=== PATIENT | male | born 1985 | race African-American/Black ===

== ENCOUNTER 2021-07-10 15:20 | Inpatient (IN) ==
[2021-07-10] MEDS: SODIUM CHLORIDE 0.9% 1000ML 1,000 ML IV STA ×2 (15:59→16:31)
[2021-07-10] MEDS ORDERED: ACETAMINOPHEN 500 MG TAB PO STA ×2 (16:00→16:59)
[2021-07-10] MEDS ORDERED: SODIUM CHLORIDE 0.9% 1000ML 1,000 ML IV ONE (16:00)
[2021-07-10 16:02] LABS: Basophils # (auto) 0.02 K/uL (0-0.2); Basophils % (auto) 0.2 %; Eosinophils # (auto) 0.26 K/uL (0-0.5); Eosinophils % (auto) 2.3 %; Hematocrit (blood only) 46.2 % (42-52); Immature Granulocytes # (auto) 0.04 K/uL (0.00-0.02); Immature Granulocytes % (auto) 0.3 %; Lymphocytes % (auto) 13.1 %; Mean Corpuscular Hemoglobin 30.7 pg (25-34); Mean Corpuscular Hgb Conc 34.6 g/dL (32-36); Mean Corpuscular Volume 88.7 fL (80-100); Mean Platelet Volume 8.9 fL (7.4-10.4); Monocytes # (auto) 1.32 K/uL (0.11-0.59); Monocytes % (auto) 11.5 %; Neutrophils # (auto) 8.32 K/uL (1.4-6.5); Neutrophils % (auto) 72.6 %; Platelet Count 247 K/uL (130-400); RDW Coefficient of Variation 13.6 % (11.5-14.5); RDW Standard Deviation 44.2 fL (36.4-46.3); Red Blood Count 5.21 M/uL (4.7-6.1); White Blood Count 11.46 K/uL (4.8-10.8)
--- NOTE | 2021-07-10 16:09 | XRay Report ---
XR chest 1V portable HISTORY: Dyspnea COMPARISON: None. FINDINGS: No pneumothorax. No pleural effusions. The cardiac silhouette is borderline enlarged. This may be accentuated by the low lung volumes. There is diffuse interstitial thickening with hazy bibasi lar densities. IMPRESSION: Hazy bibasilar densities which could represent atelectasis from the low lung volumes or a viral pneum onia. ACT 112: Negative or not required by law. Electronically signed by: Vishal Hylton M.D. 07/10/2021 4:07 PM
[2021-07-10 16:11] LABS: iSTAT Creatinine 0.7 mg/dl (0.6-1.3); iSTAT Ionized Calcium 1.19 mmol/l (1.12-1.32); iSTAT Potassium 3.8 mmol/L (3.3-5.0)
[2021-07-10 16:12] LABS: Partial Thromboplastin Ratio 1.1; Partial Thromboplastin Time 29.6 Seconds (21.0-31.0); Prothrombin Time 10.4 Seconds (9.0-12.0)
[2021-07-10] MEDS ORDERED: OPTIRAY 320 125ml IV ONE (16:18)
[2021-07-10 16:23] LABS: Troponin I < 0.03 ng/ml (0-0.04)
[2021-07-10 16:24] LABS: Alanine Aminotransferase 25 U/L (7-52); Albumin Globulin Ratio 1.4 (0.9-2); Albumin Level 4.5 gm/dl (3.4-5.0); Alkaline Phosphatase 94 U/L (34-104); Anion Gap 10 (3-11); Aspartate Aminotransferase 23 U/L (13-39); BUN Creatinine Ratio 7.7 (10-20); Bilirubin,Total 1.2 mg/dl (0.2-1.0); Blood Urea Nitrogen 6 mg/dl (6-23); Calcium 9.7 mg/dl (8.5-10.1); Carbon Dioxide 24 mmol/L (21-32); Chloride 104 mmol/L (98-107); Creatinine Clr Calc Pharmacy 178.8 ml/min; Est GFR (African American) 135.5 ml/min; Est GFR (Non-African American) 116.9 ml/min; Globulin 3.2 gm/dl (2.5-4.0); Glucose 99 mg/dl (70-99(Fasting)); Magnesium 1.6 mg/dl (1.7-2.4); Potassium 3.8 mmol/L (3.5-5.1); Sodium 138 mmol/L (136-145); Total Protein 7.7 gm/dl (6.0-8.3)
--- NOTE | 2021-07-10 16:40 | CT Scan Report ---
CHEST CTA for PULMONARY ARTERIES CT DOSE: 3548.04 mGy.cm HISTORY: Dyspnea, hemoptysis TECHNIQUE: Multiaxial CT images of the chest were performed following the intravenous administration of contrast to evaluate the pulmonary arteries. Maximal intensity projection images were also obtaine d. A dose lowering technique was utilized adhering to the principles of ALARA. COMPARISON STUDY: None. FINDINGS: Trace left pleural effusion. No pericardial effusion. No significant right-sided heart stra in at this time. There is respiratory motion artifact. Normal caliber thoracic aorta with no evidence for dissection. Please refer to same day abdomen and pelvis CT for further evaluation of the abdomin al structures. Normal esophagus. The thyroid gland enhances normally. No mediastinal or hilar lymphad enopathy. The majority the bilateral lower lobe segmental and subsegmental pulmonary arteries are ess entially nondiagnostic due to the respiratory motion. However, there appear to be multiple filling de fects within the majority of the bilateral segmental/subsegmental pulmonary arteries of the lungs con sistent with pulmonary emboli. The main pulmonary arteries are patent. No fractures within the visual ized osseous structures. No pneumothorax. The central pulmonary arteries are patent. A few peripheral airspace opacities within the lung bases, left greater than right, are nonspecific but favor pulmona ry infarcts. Atelectasis or pneumonia could also have a similar appearance but are considered less li brittany. IMPRESSION: 1. Extensive bilateral segmental/subsegmental pulmonary emboli. No evidence for right-sided heart str ain at this time. 2. Trace left pleural effusion. 3. A few small nonspecific peripheral bibasilar airspace opacities, left greater than right. These fa vor pulmonary infarcts. ACT 112: Negative or not required by law. Electronically signed by: Vishal Hylton M.D. 07/10/2021 4:39 PM
--- NOTE | 2021-07-10 16:45 | CT Scan Report ---
ABDOMEN AND PELVIS CT WITH IV CONTRAST CT DOSE: HISTORY: left sided chest and abd pain, hemoptysis TECHNIQUE: Multiaxial CT images of the abdomen and pelvis were performed following the use of intrave nous contrast. A dose lowering technique was utilized adhering to the principles of ALARA. COMPARISON STUDY: None. FINDINGS: The bibasilar pulmonary emboli, trace left pleural effusion, and bibasilar pulmonary infarc ts are better appreciated on the same day chest CTA. No pneumoperitoneum. No pneumatosis. No fracture s within the visualized osseous structures. Evidence for prior left inguinal hernia repair. Tiny fat- containing umbilical hernia. The liver, spleen, adrenal glands, pancreas, gallbladder, and kidneys ar e unremarkable. No hydronephrosis. No retroperitoneal lymphadenopathy. Normal caliber abdominal aorta . The bladder is unremarkable. No pelvic free fluid or pelvic lymphadenopathy. No bowel wall thickeni ng or obstruction. Normal appendix. IMPRESSION: 1. The bibasilar pulmonary emboli, pulmonary infarcts, and trace left pleural effusion better appreci ated on the same day chest CTA. 2. No bowel wall thickening or obstruction. 3. Normal appendix. 4. No hydronephrosis. ACT 112: Negative or not required by law. Electronically signed by: Vishal Hylton M.D. 07/10/2021 4:44 PM
[2021-07-10] MEDS ORDERED: Heparin IV Adult Wt-Based Standard WITH Bolus Protocol STA (16:56)
[2021-07-10] MEDS ORDERED: MoRPHine SULFATE 4 MG/ML 1 ML CARP\\VIAL IV PRN (16:59)
[2021-07-10] MEDS ORDERED: HEPARIN SOD (PORCINE) 1000 UNIT/ML IV ONE ×3 (17:12→17:15)
--- NOTE | 2021-07-10 17:16 | Emergency Department Note ---
Impression & Plan Bilateral pulmonary embolism, Pulmonary infarct, Left-sided chest pain, Cough with hemoptysis, Abdominal pain, acute, left upper quadrant ED Provider Note INFORMANT: Patient ED PROVIDER(S): Bulmaro Meléndez MD CHIEF COMPLAINT: Chest pain PLAN: Disposition: Admitted Condition: Good Outpatient prescription management: none Referral: None MEDICAL DECISION MAKING: Patient presented to emergency room and because of left-sided chest pain. He had hemoptysis. The patient was diaphoretic. His i-STAT was unremarkable. Chest x-ray shows hazy changes but no definitive infiltrate. The patient underwent CT imaging of the chest as well as the abdomen and pelvis. His CBC showed a slight leukocytosis. Chemistry panel and troponin unremarkable. CT imaging of the abdomen pelvis was negative for intra-abdominal pathology. CT imaging of the chest revealed bilateral pulmonary emboli and pulmonary infarct. Patient was reassessed. IV morphine was ordered. Patient was hemodynamically stable. Hypercoagulability work-up ordered. Heparin was ordered. Tylenol ordered. The patient's case was discussed with the [facility] service. He will be admitted by Dr. Kapoor for further management. Triage Nursing notes reviewed and agree them. Vital Signs: reviewed and remarkable for borderline fever Differential diagnosis: PE, intra-abdominal process, reactive airway disease, pneumonia, pneumothorax, COPD, CHF, infections, cardiac ischemia, musculoskeletal, gastrointestinal, as well as other pathologies. Diagnostics interpreted by me: ECG: Twelve-lead ECG reveals normal sinus rhythm at 80 bpm. Incomplete right bundle branch block. Left axis deviation. No ST elevation or depression. No pericarditis. Cardiac Monitoring: Cardiac monitoring ordered by me: The patient was placed on continuous cardiac monitoring and observed. It revealed a normal sinus rhythm at 85 beats per minute without ectopy or evidence of dysrhythmia. Imaging studies: Chest x-ray and CT scans as noted above. I refer you to the EMR for further details. HPI: The patient is a 35year old male prisoner who presents to the Emergency Room with complaints of chest pain that is left-sided and sharp. Pleuritic. This started 3 days and is worsening. The patient also notes the following associated symptoms, mild shortness of breath, hemoptysis with coughing, left upper quadrant abdominal pain, diaphoresis. The patient has been prescribed no new medication for relieving factors. Current pain is rated as nine/10. Pt denies LOC, headache, fevers, chills, visual changes, neck pain, nausea, vom iting, abdominal pain, back pain, melena, hematochezia, urinary symptoms, numbness, weakness, lymphadenopathy, rash, or other complaints. ROS: See above HPI for pertinent positives & negatives. A total of 10 systems reviewed and were otherwise negative. PAST MEDICAL HISTORY:See Below , arthritis PAST SURGICAL HISTORY:See Below, FAMILY HISTORY:See Below SOCIAL HISTORY:See Below, incarcerated HOME MEDICATIONS:See Below ALLERGIES:See Below VITALS:See Below PHYSICAL EXAMINATION: GENERAL: Awake, alert, uncomfortable-appearing, in no distress HENT: Normocephalic, atraumatic. Oropharynx unremarkable. EYES: Normal conjunctiva. Sclera non-icteric. NECK: Inspection normal. Non-tender. Supple. No nuchal rigidity. FROM. No masses. RESPIRATORY: Clear to auscultation. No wheezes. No rales. Normal respiratory effort. CARDIAC: Normal rate. Normal rhythm. No murmurs. No rubs. Extremities warm and well perfused. Pulses equal. No JVD. GI: Soft, non-distended. No tenderness to palpation. No rebound or guarding. No masses. RECTAL: Deferred. MUSCULOSKELETAL: Atraumatic. Chest examination reveals no tenderness. The back is symmetrical on inspection without obvious abnormality. There is no CVA tenderness to palpation. No joint edema. LOWER EXTREMITIES: Calves are equal size bilaterally and non-tender. No edema. No discoloration. NEURO: Normal sensorium. No sensory or motor deficits noted. SKIN: Diaphoretic, no rash or jaundice noted. CRITICAL CARE: I have personally spent greater than 40minutes of critical care time in the direct management of this patient. This includes bedside care, interpretation of diagnostic studies, and testing, discussion with consultants, patient, and group home staff, and other required patient management activities. These minutes are in excess of all separately billable procedures. Bulmaro Meléndez MD Past Med/Surg History Social History Smoking Status: Former smoker Feels Safe at Home: Yes Results & Data (ED) Vital Signs Vital Signs - 24 hr 07/10/21 15:27 07/10/21 16:07 Temperature 37.6 C H Temperature Source Oral Pulse Rate 88 85 Pulse Rate [Apical] 85 Pulse Rhythm Regular Pulse Strength Normal Respiratory Rate 22 24 Respiratory Effort / Characteristics Non-Labored Spontaneous Non-Labored Spontaneous Respiratory Depth Normal Normal Respiratory Pattern Regular Regular Blood Pressure 164/105 H Blood Pressure [Right Arm] 164/90 H Blood Pressure Mean 124 Blood Pressure Mean [Right Arm] 114 Blood Pressure Position Sitting Pulse Oximetry 95 98 Oxygen Delivery Method Room Air Room Air Sepsis Recent Fever Within 48 Hours No Sepsis New/Unexplained Change in Mental Status No Sepsis Action Taken by Nursing No Action Required Laboratory Data Result diagrams: 07/10/21 15:50 07/10/21 15:50 Lab Results 07/10/21 07/10/21 07/10/21 Range/Units 15:50 15:50 15:50 WBC 11.46 H (4.8-10.8) K/uL RBC 5.21 (4.7-6.1) M/uL Hgb 16.0 (14.0-18.0) g/dL POC Hgb (14.0-18.0) g/dl Hct 46.2 (42-52) % POC Hct (42-52) % MCV 88.7 (80-100) fL MCH 30.7 (25-34) pg MCHC 34.6 (32-36) g/dL RDW Std Deviation 44.2 (36.4-46.3) fL RDW Coeff of Ty 13.6 (11.5-14.5) % Plt Count 247 (130-400) K/uL MPV 8.9 (7.4-10.4) fL Immature Gran % (Auto) 0.3 % Neut % (Auto) 72.6 % Lymph % (Auto) 13.1 % [place] % (Auto) 11.5 % Eos % (Auto) 2.3 % Baso % (Auto) 0.2 % Neut # (Auto) 8.32 H (1.4-6.5) K/uL Lymph # (Auto) 1.50 (1.2-3.4) K/uL [place] # (Auto) 1.32 H (0.11-0.59) K/uL Eos # (Auto) 0.26 (0-0.5) K/uL Baso # (Auto) 0.02 (0-0.2) K/uL Immature Gran # (Auto) 0.04 H (0.00-0.02) K/uL PT 10.4 (9.0-12.0) Seconds INR 1.0 (0.9-1.1) APTT 29.6 (21.0-31.0) Seconds PTT Ratio 1.1 POC Sodium (135-144) mmol/L Sodium 138 (136-145) mmol/L POC Potassium (3.3-5.0) mmol/L Potassium 3.8 (3.5-5.1) mmol/L POC Chloride (101-112) mmol/L Chloride 104 (98-107) mmol/L Carbon Dioxide 24 (21-32) mmol/L POC Total CO2 (24-31) mmol/L Anion Gap 10 (3-11) POC Anion Gap (16-25) mmol/L POC BUN (7-18) mg/dl BUN 6 (6-23) mg/dl Creatinine 0.78 (0.6-1.4) mg/dl POC Creatinine (0.6-1.3) mg/dl Est Cr Clr Drug Dosing 178.8 ml/min Est GFR ( Amer) 135.5 ml/min Est GFR (Non-Af Amer) 116.9 ml/min BUN/Creatinine Ratio 7.7 L (10-20) Glucose 99 (70-99(Fasting)) mg/dl POC Glucose (other) (70-99) mg/dl Calcium 9.7 (8.5-10.1) mg/dl POC Ioniz Calcium Claude (1.12-1.32) mmol/l Magnesium 1.6 L (1.7-2.4) mg/dl Total Bilirubin 1.2 H (0.2-1.0) mg/dl AST 23 (13-39) U/L ALT 25 (7-52) U/L Alkaline Phosphatase 94 (34-104) U/L Troponin I < 0.03 (0-0.04) ng/ml Total Protein 7.7 (6.0-8.3) gm/dl Albumin 4.5 (3.4-5.0) gm/dl Globulin 3.2 (2.5-4.0) gm/dl Albumin/Globulin Ratio 1.4 (0.9-2) SARS-CoV-2, RNA, NAAT (NEGATIVE) 07/10/21 07/10/21 Range/Units 15:58 16:45 WBC (4.8-10.8) K/uL RBC (4.7-6.1) M/uL Hgb (14.0-18.0) g/dL POC Hgb 16.0 (14.0-18.0) g/dl Hct (42-52) % POC Hct 47 (42-52) % MCV (80-100) fL MCH (25-34) pg MCHC (32-36) g/dL RDW Std Deviation (36.4-46.3) fL RDW Coeff of Ty (11.5-14.5) % Plt Count (130-400) K/uL MPV (7.4-10.4) fL Immature Gran % (Auto) % Neut % (Auto) % Lymph % (Auto) % [place] % (Auto) % Eos % (Auto) % Baso % (Auto) % Neut # (Auto) (1.4-6.5) K/uL Lymph # (Auto) (1.2-3.4) K/uL [place] # (Auto) (0.11-0.59) K/uL Eos # (Auto) (0-0.5) K/uL Baso # (Auto) (0-0.2) K/uL Immature Gran # (Auto) (0.00-0.02) K/uL PT (9.0-12.0) Seconds INR (0.9-1.1) APTT (21.0-31.0) Seconds PTT Ratio POC Sodium 140 (135-144) mmol/L Sodium (136-145) mmol/L POC Potassium 3.8 (3.3-5.0) mmol/L Potassium (3.5-5.1) mmol/L POC Chloride 103 (101-112) mmol/L Chloride (98-107) mmol/L Carbon Dioxide (21-32) mmol/L POC Total CO2 23 L (24-31) mmol/L Anion Gap (3-11) POC Anion Gap 19.0 (16-25) mmol/L POC BUN 4 L (7-18) mg/dl BUN (6-23) mg/dl Creatinine (0.6-1.4) mg/dl POC Creatinine 0.7 (0.6-1.3) mg/dl Est Cr Clr Drug Dosing ml/min Est GFR ( Amer) ml/min Est GFR (Non-Af Amer) ml/min BUN/Creatinine Ratio (10-20) Glucose (70-99(Fasting)) mg/dl POC Glucose (other) 104 H (70-99) mg/dl Calcium (8.5-10.1) mg/dl POC Ioniz Calcium Claude 1.19 (1.12-1.32) mmol/l Magnesium (1.7-2.4) mg/dl Total Bilirubin (0.2-1.0) mg/dl AST (13-39) U/L ALT (7-52) U/L Alkaline Phosphatase (34-104) U/L Troponin I (0-0.04) ng/ml Total Protein (6.0-8.3) gm/dl Albumin (3.4-5.0) gm/dl Globulin (2.5-4.0) gm/dl Albumin/Globulin Ratio (0.9-2) SARS-CoV-2, RNA, NAAT NEGATIVE (NEGATIVE) Administered Medications Sodium Chloride (Nss 1000ml) 1,000 mls @ 125 mls/hr IV .Q8H STA Stop: 07/10/21 23:34 Last Admin: 07/10/21 16:31 Dose: Not Given Documented by: [id number] Discontinued Medications Acetaminophen (Acetaminophen 500 Mg Tab) 1,000 mg PO NOW STA Stop: 07/10/21 16:01 Last Admin: 07/10/21 16:36 Dose: 1,000 mg Documented by: [id number] Sodium Chloride (Nss 1000ml) 1,000 mls @ 999 mls/hr IV .Q1H1M ONE Stop: 07/10/21 17:00 Last Admin: 07/10/21 16:06 Dose: 999 mls/hr Documented by: [id number] Ioversol (Optiray 320 125ml) 119 ml IV ONCE ONE Stop: 07/10/21 16:19 Last Admin: 07/10/21 16:21 Dose: 119 ml Documented by: [id number] Imaging Data Radiologist's Impression: Chest CTA 07/10/21 15:35 CHEST CTA for PULMONARY ARTERIES CT DOSE: 3548.04 mGy.cm HISTORY: Dyspnea, hemoptysis TECHNIQUE: Multiaxial CT images of the chest were performed following the intravenous administration of contrast to evaluate the pulmonary arteries. Max imal intensity projection images were also obtained. A dose lowering technique was utilized adhering to the principles of ALARA. COMPARISON STUDY: None. FINDINGS: Trace left pleural effusion. No pericardial effusion. No significant right-sided heart strain at this time. There is respiratory motion artifact. Normal caliber thoracic aorta with no evidence for dissection. Please refer to same day abdomen and pelvis CT for further evaluation of the abdominal structures. Normal esophagus. The thyroid gland enhances normally. No mediastinal or hilar lymphadenopathy. The majority the bilateral lower lobe segmental and subsegmental pulmonary arteries are essentially nondiagnostic due to the respiratory motion. However, there appear to be multiple filling defects within the majority of the bilateral segmental/subsegmental pulmonary arteries of the lungs consistent with pulmonary emboli. The main pulmonary arteries are patent. No fractures within the visualized osseous structures. No pneumothorax. The central pulmonary arteries are patent. A few peripheral airspace opacities within the lung bases, left greater than right, are nonspecific but favor pulmonary infarcts. Atelectasis or pneumonia could also have a similar appearance but are considered less likely. IMPRESSION: 1. Extensive bilateral segmental/subsegmental pulmonary emboli. No evidence for right-sided heart strain at this time. 2. Trace left pleural effusion. 3. A few small nonspecific peripheral bibasilar airspace opacities, left greater than right. These favor pulmonary infarcts. ACT 112: Negative or not required by law. Electronically signed by: Vishal Hylton M.D. 07/10/2021 4:39 PM Chest X-Ray 07/10/21 15:35 XR chest 1V portable HISTORY: Dyspnea COMPARISON: None. FINDINGS: No pneumothorax. No pleural effusions. The cardiac silhouette is borde rline enlarged. This may be accentuated by the low lung volumes. There is diffuse interstitial thickening with hazy bibasilar densities. IMPRESSION: Hazy bibasilar densities which could represent atelectasis from the low lung volumes or a viral pneumonia. ACT 112: Negative or not required by law. Electronically signed by: Vishal Hylton M.D. 07/10/2021 4:07 PM Abdomen/Pelvis CT 07/10/21 16:[address] WITH IV CONTRAST CT DOSE: HISTORY: left sided chest and abd pain, hemoptysis TECHNIQUE: Multiaxial CT images of the abdomen and pelvis were performed following the use of intravenous contrast. A dose lowering technique was utilized adhering to the principles of ALARA. COMPARISON STUDY: None. FINDINGS: The bibasilar pulmonary emboli, trace left pleural effusion, and bibasilar pulmonary infarcts are better appreciated on the same day chest CTA. No pneumoperitoneum. No pneumatosis. No fractures within the visualized osseous structures. Evidence for prior left inguinal hernia repair. Tiny fat-containing umbilical hernia. The liver, spleen, adrenal glands, pancreas, gallbladder, and kidneys are unremarkable. No hydronephrosis. No retroperitoneal lymphadenopathy. Normal caliber abdominal aorta. The bladder is unremarkable. No pelvic free fluid or pelvic lymphadenopathy. No bowel wall thickening or obstruction. Normal appendix. IMPRESSION: 1. The bibasilar pulmonary emboli, pulmonary infarcts, and trace left pleural effusion better appreciated on the same day chest CTA. 2. No bowel wall thickening or obstruction. 3. Normal appendix. 4. No hydronephrosis. ACT 112: Negative or not required by law. Electronically signed by: Vishal Hylton M.D. 07/10/2021 4:44 PM Discharge Plan Visit Data Chief Complaint: Respiratory Problems Stated Complaint: POSSIBLE PULMANARY EMBOLISM ED Provider: Bulmaro Meléndez Discharge Problem: Bilateral pulmonary embolism, Pulmonary infarct, Left-sided chest pain, Cough with hemoptysis, Abdominal pain, acute, left upper quadrant Forms Stand Alone Forms: My [facility] Referrals Referrals: Erica TORRES [Primary Care Provider] -
[2021-07-10] MEDS: HEPARIN SODIUM/DEXTROSE 25,000 UNITS/500 ML BAG IV SCH (17:46)
[2021-07-10] MEDS ORDERED: MAGNESIUM SULFATE 1GM / D5W BAG IV ONE (17:46)
[2021-07-10] MEDS ORDERED: ALUMINUM/MAGNESIUM SUSP 30 ML UDC PO PRN (18:01)
[2021-07-10] MEDS ORDERED: POLYETHYLENE (MIRALAX) 17 GM PACK PO PRN (18:01)
[2021-07-10] MEDS ORDERED: MAGNESIUM HYDROXIDE SUSP 30 ML UDC PO PRN (18:01)
[2021-07-10] MEDS ORDERED: ONDANSETRON INJ 2 MG/ML 2 ML VIAL IV PRN (18:01)
[2021-07-10] MEDS ORDERED: ACETAMINOPHEN 325 MG TAB PO PRN (18:01)
--- NOTE | 2021-07-10 18:03 | History & Physical Report ---
Date of Service July 10, 2021 Assessment & Plan (1) Bilateral pulmonary embolism: (2) Pulmonary infarct: (3) Left-sided chest pain: Plan: Bilateral pulmonary embolism Pulmonary infarct Left Sided chest pain Hemoptysis Admit to PCU Continue IV Heparin bolus/gtt obtain echo to r/o R heart strain consult pulmonology pain control with scheduled APAP, prn IV morphine, K pad monitor labs hypercoagulable w/u pending Hypomagnesemia Replace Repeat in a.m. DVT prophylaxis: IV heparin Dispo: PCU Full code PCP: [facility] Patient was seen and examined in collaboration with Dr. Kapoor, please see addendum The chart was completed utilizing [employer] Speech voice recognition software. Grammatical errors, random word insertions, pronoun errors, and incomplete sentences are an occasional consequence of this system due to software limitations, ambient noise, and hardware issues. Any formal questions or concerns about the content, text, or information contained within the body of this dictation should be directly addressed to the provider for clarification. History of Present Illness Chief Complaint: Left-sided chest pain, shortness of breath with hemoptysis x3 days. Primary Care Provider: MELISSA Maldonado This is a 35-year-old male who is otherwise healthy and resides at [facility] who presents to ED due to left-sided chest pain, shortness of breath and hemoptysis x3 days. He states 3 days ago he awoke from sleeping with hemo ptysis, left-sided chest pain and shortness of breath with exertion. Over 3 days his symptoms worsened and due to worsening left-sided chest pain he opted to seek ED for further evaluation. Left-sided chest pain is constant, worse with inspiration, described as a sharp pain, rated a 7 out of 10, never experienced before, improved with shallow breathing, made worse with deep breathing and movement and is associated with shortness of breath. He denies any prior history of pulmonary embolism. He states his brother in his 30s was diagnosed with pulmonary embolism and his mother has been fighting clots for the past 20 years. He is unsure if they have clotting disorder. Up until 3 days ago he had been in his normal state of health. He is very active and works out at the longterm frequently. He denies any recent travel, sedentary state or surgery. He denies any known medical problems including active cancer, HTN, HLD or diabetes. He denies any recent fever, chills, sweats, lightheadedness, dizziness, shortness of breath at rest, nausea, vomiting, abdominal pain, changes bowel or urinary habits. [facility] guards are present at bedside. In ED patient remained hemodynamically stable although mildly hypertensive and temperature elevated at 37.6. His CBC and CMP were generally unremarkable except for mild leukocytosis at 11.46, glucose 104 and magnesium 1.6. CTA of chest revealed extensive bilateral segmental/subsegmental pulmonary emboli with no evidence of right heart strain. Trace left pleural effusion. A few small nonspecific peripheral bibasilar airspace opacities, left greater than right favoring pulmonary infarct. In ED he was initiated on IV heparin bolus and drip after hypercoagulable panel was obtained. He also received IV morphine for pain control. Allergies Allergy/AdvReac Type Severity Reaction Status Date / Time No Known Allergies Allergy Unverified 07/10/21 17:46 Home Medications Medication Instructions Recorded Confirmed Type diclofenac sodium 25 mg 25 mg PO TID PRN 07/10/21 07/10/21 History tablet,delayed release famotidine 10 mg tablet 10 mg PO HS 07/10/21 07/10/21 History omeprazole 40 mg capsule,delayed 40 mg PO DAILY 07/10/21 07/10/21 History release topiramate 25 mg tablet 25 mg PO DAILY 07/10/21 07/10/21 History Past Med/Surg History Medical History (Updated 07/10/21 @ 19:19 by Gisselle Fox PA-C) Antisocial personality disorder No significant past medical history Surgical History History of arthroscopic knee surgery History of hernia surgery Family History Brother Pulmonary embolism Mother Pulmonary embolism Other Cancer Diabetes Social History Smoking Status: Former smoker Hx Alcohol Use: No Hx Substance Use: No Preferred Language: Moroccan Communication Ability: Effective Cutter Helper Required: No Beliefs That Will Affect Care: None marital status: Single Current Living Situation: Other Current Living Situation Comment: MEILSSA Maldonado Feels Safe at Home: Yes Safety Concerns: Feels Safe At This Time Assistive Devices: None Review of Systems Review of Systems: All systems reviewed & are unremarkable except as noted in HPI & below Physical Exam Physical Exam: Constitutional: WD/WN, vitals as above, NAD, sitting up in bed, pleasant, conversing easily Head: Normocephalic, Atraumatic Eyes: PERRL, conjunctivae normal, anicteric sclerae ENMT: external ear and nose normal, oropharynx normal Neck: trachea midline, no thyromegaly normal visual inspection Respiratory: normal respiratory effort, lungs clear to auscultation, no wheeze, rales, rhonchi. Normal insp/exp effort, no accessory muscle use Cardiovascular: RRR, no murmur, no edema Vessels: no JVD or carotid bruit Chest: Pain to palpation left side and lateral side of chest, pain with inspiration, normal inspection of chest Abdomen: normal bowel sounds, soft, nontender, no hepatosplenomegaly Musculoskeletal: no cyanosis or clubbing, extremities motor strength 5/5 Skin: Multiple tattoos on anterior posterior thorax and extremities, no rashes, warm and dry normal turgor Neurologic: PERRL, EOMI, accommodation nl, no face palsy, no dysarthria CN's II-XI intact bilaterally and moves all extremities Psychiatric: A+Ox3, euthymic affect Lymphatic: no cervical or axillary lymphadenopathy : deferred Results & Data Results & Data ([facility]) Vital Signs (Past 12 Hours) Vital Signs Temp Pulse Pulse Resp BP BP Pulse Ox 07/10/21 16:07 85 85 24 164/90 H 98 07/10/21 15:27 37.6 C H 88 22 164/105 H 95 Diagnostic Findings Chest CTA 07/10/21 15:35 CHEST CTA for PULMONARY ARTERIES CT DOSE: 3548.04 mGy.cm HISTORY: Dyspnea, hemoptysis TECHNIQUE: Multiaxial CT images of the chest were performed following the intravenous administration of contrast to evaluate the pulmonary arteries. Maximal intensity projection images were also obtained. A dose lowering technique was utilized adhering to the principles of ALARA. COMPARISON STUDY: None. FINDINGS: Trace left pleural effusion. No pericardial effusion. No significant right-sided heart strain at this time. There is respiratory motion artifact. Normal caliber thoracic aorta with no evidence for dissection. Please refer to same day abdomen and pelvis CT for further evaluation of the abdominal structures. Normal esophagus. The thyroid gland enhances normally. No mediastinal or hilar lymphadenopathy. The majority the bilateral lower lobe segmental and subsegmental pulmonary arteries are essentially nondiagnostic due to the respiratory motion. However, there appear to be multiple filling defects within the majority of the bilateral segmental/subsegmental pulmonary arteries of the lungs consistent with pulmonary emboli. The main pulmonary arteries are patent. No fractures within the visualized osseous structures. No pneumothorax. The central pulmonary arteries are patent. A few peripheral airspace opacities within the lung bases, left greater than right, are nonspecific but favor pulmonary infarcts. Atelectasis or pneumonia could also have a similar appearance but are considered less likely. IMPRESSION: 1. Extensive bilateral segmental/subsegmental pulmonary emboli. No evidence for right-sided heart strain at this time. 2. Trace left pleural effusion. 3. A few small nonspecific peripheral bibasilar airspace opacities, left greater than right. These favor pulmonary infarcts. ACT 112: Negative or not required by law. Electronically signed by: Vishal Hylton M.D. 07/10/2021 4:39 PM Chest X-Ray 07/10/21 15:35 XR chest 1V portable HISTORY: Dyspnea COMPARISON: None. FINDINGS: No pneumothorax. No pleural effusions. The cardiac silhouette is borderline enlarged. This may be accentuated by the low lung volumes. There is diffuse interstitial thickening with hazy bibasilar densities. IMPRESSION: Hazy bibasilar densities which could represent atelectasis from the low lung volumes or a viral pneumonia. ACT 112: Negative or not required by law. Electronically signed by: Vishal Hylton M.D. 07/10/2021 4:07 PM Abdomen/Pelvis CT 07/10/21 16:[address] WITH IV CONTRAST CT DOSE: HISTORY: left sided chest and abd pain, hemoptysis TECHNIQUE: Multiaxial CT images of the abdomen and pelvis were performed following the use of intravenous contrast. A dose lowering technique was utilized adhering to the principles of ALARA. COMPARISON STUDY: None. FINDINGS: The bibasilar pulmonary emboli, trace left pleural effusion, and bibasilar pulmonary infarcts are better appreciated on the same day chest CTA. No pneumoperitoneum. No pneumatosis. No fractures within the visualized osseous structures. Evidence for prior left inguinal hernia repair. Tiny fat-containing umbilical hernia. The liver, spleen, adrenal glands, pancreas, gallbladder, and kidneys are unremarkable. No hydronephrosis. No retroperitoneal lymphadenopathy. Normal caliber abdominal aorta. The bladder is unremarkable. No pelvic free fluid or pelvic lymphadenopathy. No bowel wall thickening or obstruction. Normal appendix. IMPRESSION: 1. The bibasilar pulmonary emboli, pulmonary infarcts, and trace left pleural effusion better appreciated on the same day chest CTA. 2. No bowel wall thickening or obstruction. 3. Normal appendix. 4. No hydronephrosis. ACT 112: Negative or not required by law. Electronically signed by: Vishal Hylton M.D. 07/10/2021 4:44 PM Medications Administered Medication List Sodium Chloride (Nss 1000ml) 1,000 mls @ 125 mls/hr IV .Q8H STA Stop: 07/10/21 23:34 Last Admin: 07/10/21 16:31 Dose: Not Given Documented by: [id number] Heparin Sodium/Dextrose (Heparin Sodium/Dextrose) 25,000 units in 500 mls @ 34 mls/hr IV .[id number] [facility]; Protocol Stop: 08/09/21 17:14 Last Admin: 07/10/21 17:46 Dose: 1,700 units/hr, 34 mls/hr Documented by: [id number] Cosigned by: [id number] Discontinued Medications Acetaminophen (Acetaminophen 500 Mg Tab) 1,000 mg PO NOW STA Stop: 07/10/21 16:01 Last Admin: 07/10/21 16:36 Dose: 1,000 mg Documented by: [id number] Acetaminophen (Acetaminophen 500 Mg Tab) 1,000 mg PO NOW STA Stop: 07/10/21 17:00 Last Admin: 07/10/21 17:45 Dose: 1,000 mg Documented by: [id number] Heparin Sodium (Porcine) (Heparin Sod (Porcine) 1000 Unit/Ml) 5,000 units IV NOW ONE Stop: 07/10/21 17:16 Last Admin: 07/10/21 17:45 Dose: 5,000 units Documented by: [id number] Cosigned by: [id number] Sodium Chloride (Nss 1000ml) 1,000 mls @ 999 mls/hr IV .Q1H1M ONE Stop: 07/10/21 17:00 Last Admin: 07/10/21 16:06 Dose: 999 mls/hr Documented by: [id number] Ioversol (Optiray 320 125ml) 119 ml IV ONCE ONE Stop: 07/10/21 16:19 Last Admin: 07/10/21 16:21 Dose: 119 ml Documented by: [id number] ECG Rate (beats per minute): 88 Rhythm: normal sinus Findings: + RBBB COVID-19 Results Results COVID-19 Adm Lab Results: RBC 5.21 M/uL (4.7-6.1) 07/10/21 WBC 11.46 K/uL (4.8-10.8) H 07/10/21 Hgb 16.0 g/dL (14.0-18.0) 07/10/21 Hct 46.2 % (42-52) 07/10/21 Plt Count 247 K/uL (130-400) 07/10/21 Neutrophils (%) (Auto) 72.6 % 07/10/21 Lymphocytes (%) (Auto) 13.1 % 07/10/21 Monocytes # (Auto) 1.32 K/uL (0.11-0.59) H 07/10/21 Eosinophils # (Auto) 0.26 K/uL (0-0.5) 07/10/21 Immature Granulocyte % (Auto) 0.3 % 07/10/21 Neutrophils # (Auto) 8.32 K/uL (1.4-6.5) H 07/10/21 Lymphocytes # (Auto) 1.50 K/uL (1.2-3.4) 07/10/21 Monocytes # (Auto) 1.32 K/uL (0.11-0.59) H 07/10/21 Eosinophils # (Auto) 0.26 K/uL (0-0.5) 07/10/21 Basophils # (Auto) 0.02 K/uL (0-0.2) 07/10/21 Immature Granulocyte # (Auto) 0.04 K/uL (0.00-0.02) H 07/10/21 Na 138 mmol/L (136-145) 07/10/21 K 3.8 mmol/L (3.5-5.1) 07/10/21 Cl 104 mmol/L (98-107) 07/10/21 CO2 24 mmol/L (21-32) 07/10/21 Anion Gap 10 (3-11) 07/10/21 BUN 6 mg/dl (6-23) 07/10/21 Creatinine 0.78 mg/dl (0.6-1.4) 07/10/21 BUN/Creatinine Ratio 7.7 (10-20) L 07/10/21 Glucose Level 99 mg/dl (70-99(Fasting)) 07/10/21 Ca 9.7 mg/dl (8.5-10.1) 07/10/21 Total Bilirubin 1.2 mg/dl (0.2-1.0) H 07/10/21 AST/SGOT 23 U/L (13-39) 07/10/21 ALT/SGPT 25 U/L (7-52) 07/10/21 Alkaline Phosphatase 94 U/L (34-104) 07/10/21 Total Protein 7.7 gm/dl (6.0-8.3) 07/10/21 Albumin 4.5 gm/dl (3.4-5.0) 07/10/21 Globulin 3.2 gm/dl (2.5-4.0) 07/10/21 Albumin/Globulin Ratio 1.4 (0.9-2) 07/10/21 Troponin I < 0.03 ng/ml (0-0.04) 07/10/21 PTT 29.6 Seconds (21.0-31.0) 07/10/21 INR 1.0 (0.9-1.1) 07/10/21 SARS-CoV-2, RNA, NAAT NEGATIVE (NEGATIVE) 07/10/21 Chest X-Ray 07/10/21 Code Status & VTE Plan Code Status Full code VTE Prophylaxis Plan VTE Prophylaxis will be ordered: No Supervising Physician Co-Signing Physician Notes I have seen and examined the patient and have discussed the case with the provider above. I agree with the assessment and plan as stated. 35 yo prisoner with acute chest pain worse on the left 2/2 pulmonary infarction and acute PE, unprovoked. Mother and brother with h/o DVT in the past but he doesn't know if they had an underlying disorder. Pain is not controlled with tylenol or morphine and there is an exquisite pain with palpation of the left pectoralis area. No bruising present. Physical reveals a young, muscular man in mild distress 2/2 pain. Mentating clearly and CN 2-12 grossly intact, lungs are clear to auscultation throughout, cardiac exam reveals S1/2 heard with out m/g/r. Labs and imaging as noted above. Agree with heparin at this time which will also offer an anti-inflammatory effect. Cont pain control efforts with APAP and/or narcotic. Add toradol as morphine and APAP not effective. Hypercoag workup is pending. Consult pulmonology for oversight and additional recommendations. DO Antwon
[2021-07-10] MEDS: MAGNESIUM SULFATE / D5W 1 GM/100 ML BAG IV SCH ×2 (18:15→19:15)
[2021-07-10] MEDS ORDERED: MoRPHine SULFATE 2 MG/ML CARP IV STA (19:02)
[2021-07-10] MEDS: FAMOTIDINE 10 MG TABLET PO SCH (21:19)
[2021-07-10] MEDS: ACETAMINOPHEN 500 MG TAB PO SCH (21:19)
[2021-07-11 01:31] LABS: Partial Thromboplastin Ratio 1.7
[2021-07-11 08:25] LABS: Basophils # (auto) 0.02 K/uL (0-0.2); Basophils % (auto) 0.2 %; Eosinophils # (auto) 0.26 K/uL (0-0.5); Eosinophils % (auto) 2.5 %; Hematocrit (blood only) 46.4 % (42-52); Hemoglobin 15.7 g/dL (14.0-18.0); Immature Granulocytes # (auto) 0.02 K/uL (0.00-0.02); Immature Granulocytes % (auto) 0.2 %; Lymphocytes # (auto) 1.51 K/uL (1.2-3.4); Lymphocytes % (auto) 14.4 %; Mean Corpuscular Hemoglobin 30.4 pg (25-34); Mean Corpuscular Hgb Conc 33.8 g/dL (32-36); Mean Corpuscular Volume 89.7 fL (80-100); Mean Platelet Volume 8.8 fL (7.4-10.4); Monocytes % (auto) 11.4 %; Neutrophils % (auto) 71.3 %; Platelet Count 222 K/uL (130-400); RDW Coefficient of Variation 13.6 % (11.5-14.5); RDW Standard Deviation 44.6 fL (36.4-46.3); Red Blood Count 5.17 M/uL (4.7-6.1); White Blood Count 10.51 K/uL (4.8-10.8)
[2021-07-11 08:34] LABS: Partial Thromboplastin Ratio 1.6
[2021-07-11] MEDS: HEPARIN SODIUM/DEXTROSE 25,000 UNITS/500 ML BAG IV SCH (08:35)
[2021-07-11] MEDS: PANTOprazole 40 MG TAB PO SCH (08:36)
[2021-07-11] MEDS: ACETAMINOPHEN 500 MG TAB PO SCH ×4 (08:36→20:36)
[2021-07-11] MEDS: TOPIRAMATE 25 MG TAB PO SCH (08:37)
[2021-07-11] MEDS: MoRPHine SULFATE 4 MG/ML 1 ML CARP\\VIAL IV PRN ×2 (08:37→17:59)
[2021-07-11 08:44] LABS: Albumin Globulin Ratio 1.3 (0.9-2); BUN Creatinine Ratio 9.5 (10-20); Bilirubin,Total 1.1 mg/dl (0.2-1.0); Calcium 9.3 mg/dl (8.5-10.1); Creatinine Clr Calc Pharmacy 188.3 ml/min; Est GFR (African American) 138.5 ml/min; Est GFR (Non-African American) 119.5 ml/min; Globulin 3.2 gm/dl (2.5-4.0); Magnesium 1.9 mg/dl (1.7-2.4); Total Protein 7.2 gm/dl (6.0-8.3)
[2021-07-11] MEDS ORDERED: APIXABAN 5 MG TABLET PO SCH (09:45)
[2021-07-11] MEDS: DICLOFENAC SOD 1% GEL 100 GM TUBE EXT SCH ×3 (10:59→20:43)
--- NOTE | 2021-07-11 12:55 | Pulmonary Consultation ---
Date of Consultation July 11, 2021 Assessment & Plan (1) Bilateral pulmonary embolism: (2) Pulmonary infarct: (3) Cough with hemoptysis: (4) Pleurisy: 35-year-old male presenting with unprovoked pulmonary embolism. Agree with heparin at this time and consider switching to oral anticoagulant in the next 24 to 48 hours if no further signs of hemoptysis. Pulmonary infarct should be self-limiting and will resolve with time. No interventions required at this time. Recommend outpatient hematology follow-up for further work-up of possible hypercoagulable state. Echo results pending. No indication for systemic thrombolysis at this time. Recommend lidocaine patch for chest pain related to pleurisy. Continue with pain control. Recommend incentive spirometry. Thank you for the consult. Pulmonary will sign off. Please call with questions. History of Present Illness Reason for Consultation: Pulmonary embolism and infarct Attending Physician: Daniel Mathews MD History of Present Illness [id number]-year-old male with a history of incarceration at [facility] who presented to the hospital due to shortness of breath and hemoptysis for 3 days. He was identified to have bilateral pulmonary emboli on CT chest. He denies any significant shortness of breath at rest currently. He is currently on room air saturating 97%. Also seen on CT chest were small areas of pulmonary infarct. His hemoglobin has remained stable. He does not have any obvious provoking factors for PE. He does have a history of clotting disorder in his family as his brother was diagnosed with a pulmonary embolism in his 30s and mother has had issues with clotting. He is currently on IV heparin infusion. He endorses left-sided chest pain and pleurisy. He has had small amounts of hemoptysis throughout the day admixed with mucus in his sputum. Allergies Allergy/AdvReac Type Severity Reaction Status Date / Time No Known Allergies Allergy Unverified 07/10/21 17:46 Home Medications Medication Instructions Recorded Confirmed Type diclofenac sodium 25 mg 25 mg PO TID PRN 07/10/21 07/10/21 History tablet,delayed release famotidine 10 mg tablet 10 mg PO HS 07/10/21 07/10/21 History omeprazole 40 mg capsule,delayed 40 mg PO DAILY 07/10/21 07/10/21 History release topiramate 25 mg tablet 25 mg PO DAILY 07/10/21 07/10/21 History Patient History Medical History (Updated 07/11/21 @ 14:09 by Tavo Gorman MD) Antisocial personality disorder No significant past medical history Pleurisy Surgical History History of arthroscopic knee surgery History of hernia surgery Family History Brother Pulmonary embolism Mother Pulmonary embolism Other Cancer Diabetes Social History Smoking Status: Former smoker Hx Alcohol Use: No Hx Substance Use: No Preferred Language: Mongolian Communication Ability: Effective Punch Card Operator Required: No Beliefs That Will Affect Care: None marital status: Single Current Living Situation: Other Current Living Situation Comment: MELISSA Maldonado Feels Safe at Home: Yes Safety Concerns: Feels Safe At This Time Assistive Devices: None Review of Systems Review of Systems: All systems reviewed & are unremarkable except as noted in HPI & below Physical Exam Physical Exam: Constitutional: Patient appears to be of their stated age. Patient is in no apparent distress. Patient is well-developed. Eyes: Pupils are equal round and reactive to light. Conjunctivae are normal. Anicteric sclera. Ears nose, mouth and throat: No deformities. Neck: Trachea is midline. Visual inspection is normal. Respiratory: Clear to auscultation bilaterally. No use of accessory muscles. No significant clubbing noted. Cardiovascular: Regular rate and rhythm. No murmurs. No edema. Gastrointestinal: Normal bowel sounds, soft, nontender and nondistended. No hepatosplenomegaly noted. Musculoskeletal: No cyanosis. Patient is able to move all extremities. Tenderness palpation over the anterior portion of his left hemithorax Skin: No rashes, warm dry and intact. Neurologic: No obvious focal neurological deficits seen. Psychiatric: Alert and oriented x3 with a euthymic affect. Results & Data Results & Data ([facility]) Vital Signs (Past 12 Hours) Vital Signs Temp Pulse Resp BP Pulse Ox 07/11/21 08:00 36.9 C 70 18 128/64 97 PG Care Time/CCT Total # of Minutes Spent Total Time Spent with Patient: Total time spent is greater than 50% in coordination of care (as documented) at patient's floor/unit and/or counseling patient: Coding Level of Care Code 04559 Inpt Consult Level 4 Diagnoses Bilateral pulmonary embolism I26.99 Pulmonary infarct I26.99 Cough with hemoptysis R04.2 Pleurisy R09.1
--- NOTE | 2021-07-11 15:05 | Hospitalist Progress Note ---
Date of Service July 11, 2021 Assessment & Plan (1) Bilateral pulmonary embolism: (2) Pulmonary infarct: (3) Left-sided chest pain: Plan: #. Bilateral pulmonary embolism #. Pulmonary infarct #. Left Sided chest pain #. Hemoptysis Admitting CTA chest positive for extensive bilateral segmental/subsegmental pulmonary emboli, no evidence of right-sided heart strain. Trace pleural effusion. Admitting CTAP: No acute finding except the findings described in CTA chest. Admitting troponin negative. 07/11 echo: Ejection fraction 55 to 60%, grossly normal right ventricular chamber size and systolic function on technically limited visualization. Pulmonary artery systolic pressure around 35 to 40 mmHg. Patient denies further hemoptysis. Continue IV Heparin bolus/gtt [patient was switched to Eliquis in the morning, but as precaution, we will hold it for now and resume heparin GTT per protocol 11 to 12 hours from the a.m. dose of Eliquis] Pulmonology evaluated the patient, transition to oral agents in 24 to 48 hours. Recommends outpatient hematology follow-up. pain control with scheduled APAP, prn IV morphine, K pad monitor labs hypercoagulable w/u pending Hypomagnesemia Monitor and replete as appropriate. DVT prophylaxis: IV heparin Dispo: PCU Full code PCP: [facility] and Anticipated Discharge Date Admission Date: July 10, 2021 Subjective Patient seen and examined at bedside for bilateral PE. Patient sitting up in bed, on room air, NAD, no new acute events overnight. Patient denies further hepatitis. Patient complains of left-sided chest pain which was reproducible with palpation. Will order Voltaren gel to see if that helps. Patient on IV heparin drip, continue with that for now. Patient denies fever/chills/headache/cough/sore throat/palpitations/belly pain/other review of symptoms. Physical Exam Physical Exam: GENERAL: Alert and oriented x3. NAD, on RA. HEENT: No pallor, no icterus. Pupils equal, round and reactive to light. Oral mucosa moist. NECK: No JVD, no neck masses. HEART: S1 and S2 heard. Regular rate and rhythm. No murmur, no gallop. RESPIRATORY SYSTEM: Normal AP diameter. No accessory muscle use. No wheezing, no crackles. ABDOMEN: Soft, bowel sounds present, nontender, no distention. CENTRAL NERVOUS SYSTEM: No facial droop. Speech is clear. Obeys simple commands. Moves extremities. EXTREMITIES: No edema, no erythema seen. Reproducible left sided chest and belly pain. Results & Data Results & Data ([facility]) Vital Signs (Past 12 Hours) Vital Signs Temp Pulse Resp BP Pulse Ox 07/11/21 12:00 36.9 C 78 18 128/64 98 07/11/21 08:00 36.9 C 70 18 128/64 97
[2021-07-11] MEDS: LIDOCAINE 5% 1 PATCH TD SCH (18:00)
[2021-07-11] MEDS: FAMOTIDINE 10 MG TABLET PO SCH (20:37)
[2021-07-11] MEDS: KETOROLAC TROMETHAMINE 15 MG/ML VIAL IV PRN (21:42)
[2021-07-12] MEDS: HEPARIN SODIUM/DEXTROSE 25,000 UNITS/500 ML BAG IV SCH ×3 (01:13→23:07)
[2021-07-12] MEDS: DICLOFENAC SOD 1% GEL 100 GM TUBE EXT SCH ×4 (03:11→21:44)
[2021-07-12] MEDS: MoRPHine SULFATE 4 MG/ML 1 ML CARP\\VIAL IV PRN ×2 (04:18→22:47)
[2021-07-12 06:09] LABS: Hematocrit (blood only) 48.7 % (42-52); Hemoglobin 16.2 g/dL (14.0-18.0); Mean Corpuscular Hemoglobin 30.3 pg (25-34); Mean Corpuscular Hgb Conc 33.3 g/dL (32-36); Mean Corpuscular Volume 91.2 fL (80-100); Platelet Count 225 K/uL (130-400); RDW Coefficient of Variation 13.5 % (11.5-14.5); RDW Standard Deviation 45.2 fL (36.4-46.3); Red Blood Count 5.34 M/uL (4.7-6.1); White Blood Count 8.39 K/uL (4.8-10.8)
[2021-07-12 06:20] LABS: Partial Thromboplastin Ratio 1.6; Partial Thromboplastin Time 41.9 Seconds (21.0-31.0)
[2021-07-12 06:32] LABS: BUN Creatinine Ratio 12.9 (10-20); Calcium 9.3 mg/dl (8.5-10.1); Est GFR (African American) 111.2 ml/min; Est GFR (Non-African American) 95.9 ml/min
[2021-07-12] MEDS: ACETAMINOPHEN 500 MG TAB PO SCH ×4 (09:24→21:43)
[2021-07-12] MEDS: LIDOCAINE 5% 1 PATCH TD SCH (09:25)
[2021-07-12] MEDS: TOPIRAMATE 25 MG TAB PO SCH (09:25)
[2021-07-12] MEDS: PANTOprazole 40 MG TAB PO SCH (09:25)
[2021-07-12 13:45] LABS: Partial Thromboplastin Ratio 1.4; Partial Thromboplastin Time 36.9 Seconds (21.0-31.0)
[2021-07-12] MEDS ORDERED: HEPARIN IV BOLUS 4,000 UNITS in SYRINGE 0 ML IV ONE (14:05)
[2021-07-12] MEDS ORDERED: HEPARIN SOD (PORCINE) 1000 UNIT/ML IV ONE (14:15)
--- NOTE | 2021-07-12 18:01 | Hospitalist Progress Note ---
Date of Service July 12, 2021 Assessment & Plan (1) Bilateral pulmonary embolism: (2) Pulmonary infarct: (3) Left-sided chest pain: Plan: #. Bilateral pulmonary embolism #. Pulmonary infarct #. Left Sided chest pain #. Hemoptysis Admitting CTA chest positive for extensive bilateral segmental/subsegmental pulmonary emboli, no evidence of right-sided heart strain. Trace pleural effusion. Admitting CTAP: No acute finding except the findings described in CTA chest. Admitting troponin negative. 07/11 echo: Ejection fraction 55 to 60%, grossly normal right ventricular chamber size and systolic function on technically limited visualization. Pulmonary artery systolic pressure around 35 to 40 mmHg. Patient Reports coughing up blood-tinged sputum. Continue IV Heparin bolus/gtt Pulmonology evaluated the patient, transition to oral agents in 24 to 48 hours. Recommends outpatient hematology follow-up. pain control with scheduled APAP, prn IV morphine, K pad monitor labs hypercoagulable w/u pending Hypomagnesemia Monitor and replete as appropriate. DVT prophylaxis: IV heparin Dispo: PCU Full code PCP: [facility] Disposition: When hemoptysis clears and patient is stable. Admission and Anticipated Discharge Date Admission Date: July 10, 2021 Subjective Patient seen and examined at bedside for bilateral PE. Patient sitting up in bed, on room air, NAD, no new acute events overnight. Patient reports coughing up with blood-tinged sputum. Patient complains of left-sided chest pain which was reproducible with palpation.Pain intensity same as yesterday. Patient on IV heparin drip, continue with that for now. Patient denies fever/chills/headache/cough/sore throat/palpitations/belly pain/other review of symptoms. Physical Exam Physical Exam: GENERAL: Alert and oriented x3. NAD, on RA. HEENT: No pallor, no icterus. Pupils equal, round and reactive to light. Oral mucosa moist. NECK: No JVD, no neck masses. HEART: S1 and S2 heard. Regular rate and rhythm. No murmur, no gallop. RESPIRATORY SYSTEM: Normal AP diameter. No accessory muscle use. No wheezing, no crackles. ABDOMEN: Soft, bowel sounds present, nontender, no distention. CENTRAL NERVOUS SYSTEM: No facial droop. Speech is clear. Obeys simple commands. Moves extremities. EXTREMITIES: No edema, no erythema seen. Reproducible left sided chest and Left-sided belly pain. Results & Data Results & Data ([facility]) Vital Signs (Past 12 Hours) Vital Signs Pulse Resp BP Pulse Ox 07/12/21 17:24 78 19 95 07/12/21 12:21 73 23 127/72 96 07/12/21 10:11 70 22 141/74 H 95
[2021-07-12 20:46] LABS: Partial Thromboplastin Ratio 1.6; Partial Thromboplastin Time 42.4 Seconds (21.0-31.0)
[2021-07-12] MEDS: KETOROLAC TROMETHAMINE 15 MG/ML VIAL IV PRN (21:43)
[2021-07-12] MEDS: FAMOTIDINE 10 MG TABLET PO SCH (21:44)
--- NOTE | 2021-07-12 21:49 | Electrocardiogram Report ---
Test Reason : Blood Pressure : / mmHG Vent. Rate : 088 BPM Atrial Rate : 088 BPM P-R Int : 120 ms QRS Dur : 094 ms QT Int : 368 ms P-R-T Axes : 034 -38 027 degrees QTc Int : 445 ms Normal sinus rhythm Left axis deviation Pulmonary disease pattern Incomplete right bundle branch block Abnormal ECG No previous ECGs available Confirmed by Dru Mazariegos ([id number]) on 07/12/2021 9:48:54 PM Referred By: Erica [facility] Confirmed By:Dru Mazariegos
[2021-07-13 04:15] LABS: Hematocrit (blood only) 45.9 % (42-52); Hemoglobin 15.6 g/dL (14.0-18.0)
[2021-07-13] MEDS: DICLOFENAC SOD 1% GEL 100 GM TUBE EXT SCH ×4 (04:43→23:15)
[2021-07-13] MEDS: MoRPHine SULFATE 4 MG/ML 1 ML CARP\\VIAL IV PRN ×3 (04:43→20:29)
[2021-07-13 04:45] LABS: Partial Thromboplastin Ratio 1.9
[2021-07-13] MEDS: ACETAMINOPHEN 500 MG TAB PO SCH ×4 (09:14→20:28)
[2021-07-13] MEDS: PANTOprazole 40 MG TAB PO SCH (09:15)
[2021-07-13] MEDS: TOPIRAMATE 25 MG TAB PO SCH (09:15)
[2021-07-13] MEDS: LIDOCAINE 5% 1 PATCH TD SCH (09:16)
[2021-07-13] MEDS: HEPARIN SODIUM/DEXTROSE 25,000 UNITS/500 ML BAG IV SCH ×3 (10:54→23:25)
--- NOTE | 2021-07-13 14:30 | Hospitalist Progress Note ---
Date of Service July 13, 2021 Assessment & Plan (1) Bilateral pulmonary embolism: (2) Pulmonary infarct: (3) Left-sided chest pain: Plan: #. Bilateral pulmonary embolism #. Pulmonary infarct #. Left Sided chest pain #. Hemoptysis Admitting CTA chest positive for extensive bilateral segmental/subsegmental pulmonary emboli, no evidence of right-sided heart strain. Trace pleural effusion. Admitting CTAP: No acute finding except the findings described in CTA chest. Admitting troponin negative. 07/11 echo: Ejection fraction 55 to 60%, grossly normal right ventricular chamber size and systolic function on technically limited visualization. Pulmonary artery systolic pressure around 35 to 40 mmHg. Patient Reports coughing up blood-tinged sputum. Consider rediscussion with pulm if ongoing/worsening. Continue IV Heparin bolus/gtt Pulmonology evaluated the patient. Recommends outpatient hematology follow-up. pain control with scheduled APAP, prn IV morphine, K pad monitor labs hypercoagulable w/u pending Hypomagnesemia Monitor and replete as appropriate. DVT prophylaxis: IV heparin Dispo: PCU Full code PCP: Erica Nicolas Disposition: When hemoptysis clears and patient is stable. Admission and Anticipated Discharge Date Admission Date: July 10, 2021 Subjective Patient seen and examined at bedside for bilateral PE. Patient lying in bed, on room air, NAD, no new acute events overnight. Patient reports coughing up blood-tinged sputum still. Patient complains of left-sided chest pain which has be reproducible with palpation and deep respiration. Pain intensity same as yesterday but better than what he came in with. Patient on IV heparin drip, continue with that for now. Patient denies fever/chills/headache/cough/sore throat/palpitations/belly pain/other review of symptoms. Physical Exam Physical Exam: GENERAL: Alert and oriented x3. NAD, on RA. HEENT: No pallor, no icterus. Pupils equal, round and reactive to light. Oral mucosa moist. NECK: No JVD, no neck masses. HEART: S1 and S2 heard. Regular rate and rhythm. No murmur, no gallop. RESPIRATORY SYSTEM: Normal AP diameter. No accessory muscle use. No wheezing, no crackles. ABDOMEN: Soft, bowel sounds present, no distention. CENTRAL NERVOUS SYSTEM: No facial droop. Speech is clear. Obeys simple commands. Moves extremities. EXTREMITIES: No edema, no erythema seen. Reproducible left sided chest and Left-sided belly pain on palpation. Results & Data Results & Data ([facility]) Vital Signs (Past 12 Hours) Vital Signs Temp Pulse Pulse Resp BP Pulse Ox 07/13/21 11:23 36.4 C L 60 16 121/71 96 07/13/21 08:11 36.7 C 68 18 125/78 96 07/13/21 08:00 68 07/13/21 03:55 36.4 C L 57 L 14 107/66
[2021-07-13] MEDS: FAMOTIDINE 10 MG TABLET PO SCH (20:28)
[2021-07-13] MEDS: oxyCODONE/ACETAMINOPHEN 5mg/325mg TAB PO PRN (23:22)
[2021-07-14] MEDS: DICLOFENAC SOD 1% GEL 100 GM TUBE EXT SCH ×4 (03:45→22:08)
[2021-07-14] MEDS: oxyCODONE/ACETAMINOPHEN 5mg/325mg TAB PO PRN ×4 (06:27→23:09)
[2021-07-14 07:30] LABS: Hematocrit (blood only) 46.1 % (42-52); Hemoglobin 15.7 g/dL (14.0-18.0)
[2021-07-14 07:59] LABS: Calcium 9.2 mg/dl (8.5-10.1); Est GFR (African American) 130.2 ml/min; Est GFR (Non-African American) 112.3 ml/min; Magnesium 1.9 mg/dl (1.7-2.4); Potassium 4.1 mmol/L (3.5-5.1)
[2021-07-14 08:03] LABS: Partial Thromboplastin Ratio 1.9
[2021-07-14 08:37] LABS: Partial Thromboplastin Time 50.7 Seconds (21.0-31.0)
[2021-07-14] MEDS: ACETAMINOPHEN 500 MG TAB PO SCH ×4 (09:01→21:39)
[2021-07-14] MEDS: PANTOprazole 40 MG TAB PO SCH (09:02)
[2021-07-14] MEDS: LIDOCAINE 5% 1 PATCH TD SCH (09:02)
[2021-07-14] MEDS: TOPIRAMATE 25 MG TAB PO SCH (09:02)
[2021-07-14] MEDS: MoRPHine SULFATE 4 MG/ML 1 ML CARP\\VIAL IV PRN ×3 (09:09→21:21)
[2021-07-14] MEDS: HEPARIN SODIUM/DEXTROSE 25,000 UNITS/500 ML BAG IV SCH ×2 (10:11→22:37)
[2021-07-14] MEDS ORDERED: guaiFENesin/DEXTROM SYRUP 200MG/20MG 10ML UDC PO PRN (11:11)
--- NOTE | 2021-07-14 15:38 | Hospitalist Progress Note ---
Date of Service July 14, 2021 Assessment & Plan (1) Bilateral pulmonary embolism: Plan: Bilateral pulmonary embolism Admitting CTA chest positive for extensive bilateral segmental/subsegmental pulmonary emboli, no evidence of right-sided heart strain. Trace pleural effusion. Admitting CTAP: No acute finding except the findings described in CTA chest. Admitting troponin negative. 07/11 echo: Ejection fraction 55 to 60%, grossly normal right ventricular chamber size and systolic function on technically limited visualization. Pulmonary artery systolic pressure around 35 to 40 mmHg. Continue IV Heparin bolus/gtt Pulmonology evaluated the patient. Recommends outpatient hematology follow-up. hypercoagulable w/u pending (2) Pulmonary infarct: Plan: Left Sided chest pain Hemoptysis Patient Reports coughing up blood-tinged sputum. Consider rediscussion with pulm if ongoing/worsening. Hemoptysis has been improving Will likely discharge tomorrow on further improvement on hemoptysis (3) Left-sided chest pain: Plan: Has significant left-sided chest pain due to pulmonary infarct Will start Percocet Plan: Hypomagnesemia Monitor and replete as appropriate. DVT prophylaxis: IV heparin Dispo: PCU Full code PCP: Erica Nicolas Likely discharge tomorrow Admission and Anticipated Discharge Date Admission Date: July 10, 2021 Subjective 07/14/2021 The patient was seen and examined in telemetry unit He has been complaining of left-sided chest pain with movement, cough and deep breathing His hemoptysis seems to be improving Denies any other significant symptoms Review of Systems Review of Systems: All systems reviewed and are unremarkable except as noted below Physical Exam Physical Exam: Lying in bed with some discomfort due to left-sided chest pain Constitutional: well developed and well nourished; not ill appearing Eyes: PERRL, conjunctivae normal, anicteric sclerae ENMT: external ear and nose normal, oropharynx normal Neck: trachea midline, no thyromegaly Respiratory: + respiratory distress (Due to chest pain with deep breathing) Auscultation: + diminished lung sounds and + crackles (Minimal crackles at the left base) Cardiovascular: Rate/Rhythm: regular rate and regular rhythm; not tachycardic Heart Sounds: normal S1 and normal S2; no murmur Gastrointestinal (Abdomen): Inspection/Auscultation: normal bowel sounds; abdomen not distended Percussion/Palpation: abdomen soft; abdomen nontender Musculoskeletal: No acute arthritis involving any joint Neurologic: Alert, awake and oriented x3 Results & Data Results & Data ([facility]) Vital Signs (Past 12 Hours) Vital Signs Temp Pulse Pulse Resp BP Pulse Ox 07/14/21 12:13 36.4 C L 65 16 138/77 96 07/14/21 07:53 36.7 C 72 16 100/64 95 07/14/21 07:52 79 07/14/21 03:52 36.7 C 66 18 96/61 L 96 Laboratory Results Short CBC 07/14/21 Range/Units 07:14 Hgb 15.7 (14.0-18.0) g/dL Hct 46.1 (42-52) % BMP 07/14/21 07:14 Sodium 135 L Potassium 4.1 Chloride 103 Carbon Dioxide 25 BUN 12 Creatinine 0.86 Glucose 89 Calcium 9.2 Medications Administered Current Inpatient Medications Acetaminophen (Acetaminophen 325 Mg Tab) 650 mg PO Q4H PRN PRN Reason: Pain or Fever Stop: 08/09/21 18:00 Acetaminophen (Acetaminophen 500 Mg Tab) 500 mg PO QID [facility] Stop: 08/09/21 20:59 Last Admin: 07/14/21 12:53 Dose: 500 mg Documented by: Al Hydrox/Mg Hydrox/Simethicone (Aluminum/Magnesium Susp 30 Ml Udc) 15 ml PO Q4H PRN PRN Reason: Dyspepsia Stop: 08/09/21 18:00 Diclofenac Sodium (Diclofenac Sod 1% Gel 100 Gm Tube) 2 gm EXT Q6H [facility] Stop: 08/10/21 09:44 Last Admin: 07/14/21 12:53 Dose: Not Given Documented by: Famotidine (Famotidine 10 Mg Tablet) 10 mg PO HS [facility] Stop: 08/09/21 20:59 Last Admin: 07/13/21 20:28 Dose: 10 mg Documented by: Guaifenesin/Dextromethorphan (Guaifenesin/Dextrom Syrup 200mg/20mg 10ml Udc) 10 ml PO Q6H PRN PRN Reason: Cough Stop: 08/13/21 11:10 Last Admin: 07/14/21 11:30 Dose: 10 ml Documented by: Heparin Sodium/Dextrose (Heparin Sodium/Dextrose) 25,000 units in 500 mls @ 44 mls/hr IV .[id number] [facility]; Protocol Stop: 08/09/21 17:14 Last Admin: 07/14/21 10:11 Dose: 2,200 units/hr, 44 mls/hr Documented by: Ketorolac Tromethamine (Ketorolac Tromethamine 15 Mg/Ml Vial) 15 mg IV Q6H PRN PRN Reason: Pain Stop: 07/16/21 00:00 Last Admin: 07/12/21 21:43 Dose: 15 mg Documented by: Lidocaine (Lidocaine 5% 1 Patch) 1 patch TD QAM [facility] Stop: 08/10/21 15:14 Last Admin: 07/14/21 09:02 Dose: 1 patch Documented by: Magnesium Hydroxide (Magnesium Hydroxide Susp 30 Ml Udc) 30 ml PO Q12H PRN PRN Reason: Constipation Stop: 08/09/21 18:00 Miscellaneous (Remove Lidoderm Patch) 1 ea N/A DAILY@2100 [facility] Stop: 08/10/21 22:59 Last Admin: 07/13/21 20:29 Dose: 1 ea Documented by: Morphine Sulfate (Morphine Sulfate 4 Mg/Ml 1 Ml Carp\Vial) 4 mg IV Q6H PRN PRN Reason: severe pain Stop: 07/24/21 18:00 Last Admin: 07/14/21 15:14 Dose: 4 mg Documented by: Ondansetron HCl (Ondansetron Inj 2 Mg/Ml 2 Ml Vial) 4 mg IV Q6H PRN PRN Reason: Nausea Stop: 08/09/21 18:00 Oxycodone/Acetaminophen (Oxycodone/Acetaminophen 5mg/325mg Tab) 1 tab PO Q4H PRN PRN Reason: Moderate Pain Stop: 07/27/21 15:19 Last Admin: 07/14/21 11:32 Dose: 1 tab Documented by: Pantoprazole Sodium (Pantoprazole 40 Mg Tab) 40 mg PO DAILY [facility] Stop: 08/10/21 08:59 Last Admin: 07/14/21 09:02 Dose: 40 mg Documented by: Polyethylene Glycol (Polyethylene (Miralax) 17 Gm Pack) 17 gm PO DAILY PRN PRN Reason: Constipation Stop: 08/09/21 18:00 Topiramate (Topiramate 25 Mg Tab) 25 mg PO DAILY [facility] Stop: 08/10/21 08:59 Last Admin: 07/14/21 09:02 Dose: 25 mg Documented by:
[2021-07-14] MEDS: FAMOTIDINE 10 MG TABLET PO SCH (21:40)
[2021-07-15] MEDS: DICLOFENAC SOD 1% GEL 100 GM TUBE EXT SCH ×4 (03:45→22:13)
[2021-07-15] MEDS: MoRPHine SULFATE 4 MG/ML 1 ML CARP\\VIAL IV PRN (04:36)
[2021-07-15] MEDS: oxyCODONE/ACETAMINOPHEN 5mg/325mg TAB PO PRN (06:32)
[2021-07-15 07:26] LABS: Partial Thromboplastin Ratio 2.2
[2021-07-15 07:43] LABS: Partial Thromboplastin Time 56.9 Seconds (21.0-31.0)
[2021-07-15] MEDS: HEPARIN SODIUM/DEXTROSE 25,000 UNITS/500 ML BAG IV SCH ×2 (09:22→20:27)
[2021-07-15] MEDS: TOPIRAMATE 25 MG TAB PO SCH (09:23)
[2021-07-15] MEDS: PANTOprazole 40 MG TAB PO SCH (09:23)
[2021-07-15] MEDS: LIDOCAINE 5% 1 PATCH TD SCH (09:23)
[2021-07-15] MEDS: ACETAMINOPHEN 500 MG TAB PO SCH ×4 (09:26→20:32)
[2021-07-15] MEDS: KETOROLAC TROMETHAMINE 15 MG/ML VIAL IV PRN ×2 (09:27→17:04)
[2021-07-15] MEDS ORDERED: oxyCODONE/ACETAMINOPHEN 5mg/325mg TAB PO PRN ×2 (10:36→10:38)
--- NOTE | 2021-07-15 11:32 | XRay Report ---
XR chest 2V PA/lateral CLINICAL HISTORY: Hemoptysis/Pul Infarct. Left lung pain COMPARISON STUDY: 07/10/2021 TECHNIQUE: 2 views of the chest FINDINGS: Frontal and lateral radiographs of the chest demonstrate the cardiomediastinal silhouette to be withi n normal limits. Compared to previous study, there is now a small to moderate-sized left pleural effu miguelina. The lungs are clear of alveolar opacities. Liver, there is left basilar atelectasis. There is n o evidence for right pleural effusion. There is no evidence for vascular congestion. There is no acut e osseous pathology. IMPRESSION: 1. Interval development of small to moderate-sized left pleural effusion with left basilar atelectasi s. ACT 112: Negative or not required by law. Electronically signed by: Brandan Nolasco M.D. 07/15/2021 11:30 AM
[2021-07-15] MEDS: oxyCODONE HCL IR 5 MG TAB (IMMEDIATE RELEASE) PO PRN ×2 (14:48→22:39)
--- NOTE | 2021-07-15 14:54 | Pulmonology Progress Note ---
Date of Service July 15, 2021 Assessment & Plan (1) Bilateral pulmonary embolism: (2) Pulmonary infarct: (3) Cough with hemoptysis: (4) Pleurisy: (5) Pleural effusion, left: Plan: Attending: Dr. Woodruff Impression: 35-year-old -[place] male currently incarcerated [facility] the local state correction. Patient presented to the emergency department 07/10/2021 for left-sided chest pain, shortness of breath, hemoptysis x3 days. CTA of the chest was performed and patient found to have bilateral pulmonary emboli with left-sided infarct. Initial pulmonary consultation was performed by Dr. Gorman on 07/11/2021. Patient was on heparin drip and then transition to apixaban 5 mg p.o. twice daily. Patient seemed to have worsening hemoptysis so primary team converted patient back to heparin drip. Chest x-ray today reveals interval development of left pleural effusion. Recommendations: 1. Left pleural effusion: * Bedside ultrasound performed. There is a moderate left-sided pleural effusion with good window for thoracentesis * Discussed procedure with patient. Explained risk versus benefit. Patient wishes to proceed with left thoracentesis * We will plan on holding anticoagulation tomorrow morning at 4 AM and then performing thoracentesis later that morning 2. Bilateral pulmonary emboli: * Patient unaware of any previous genetic history of clots * No significant periods of being sedentary * Patient reports Covid 2 years ago * Patient concerns at this is sequela from COVID-19 vaccination from 04/16/2021 ([employer]) * Continue with anticoagulation. Will hold as above for thoracentesis and resume after procedure tomorrow * Recommend outpatient follow-up with hematology for genetic work-up 3. Hemoptysis: * No large clots. * Saturating 99% on room air * Most likely secondary to pulmonary infarct from pulmonary emboli * Should resolve on its own. 4. Pulmonary infarct: * Most likely will resolve on its own with time * Continue to treat for underlying pulmonary emboli 5. Pleurisy: * Continue with lidocaine patch * Echocardiogram with no evidence of pericardial effusion * Continue analgesia per primary team Thank you for including us in the care of this patient. We will plan on performing thoracentesis tomorrow. We will follow along with you at this time. Admission and Anticipated Discharge Date Admission Date: July 10, 2021 Subjective Attending: Dr. Woodruff Patient seen and examined in room 236. We are asked to revisit the patient from Dr. Madrigal of the primary hospital service as the patient has developed pleural effusion on the left side. Patient reports continued pain on the left side. Lidocaine patch is in place. Patient also reports hemoptysis which appears to be stranded bleeding within his mucus. He does have a sample at bedside. No large clots or bright red blood. Patient with known pulmonary infarct on CT scan at time of admission. Patient continues to saturate well on room air. He is currently 99% SaO2. Patient has no specific anterior chest pain. Most of his pain is to the left flank and posterior area. He denies any fever, chills, sweats, rigors. He has no significant cough. He has no other acute complaints. Review of Systems Review of Systems: All systems reviewed & are unremarkable except as noted in Subjective Physical Exam Physical Exam: GENERAL : No acute distress EYES: No icterus, gaze conjugate NOSE: No evidence of epistaxis MOUTH: No lesions or candidiasis NECK: Supple LUNGS: Decreased breath sounds on the left side. Otherwise clear to auscultation bilaterally HEART: Regular, rate controlled ABDOMEN: Soft, NT, ND, BS Present EXTREMITIES: No LE edema, pedal pulses intact NEURO: A&OX3 Results & Data Results & Data ([facility]) Vital Signs (Past 12 Hours) Vital Signs Temp Pulse Pulse Resp BP Pulse Ox 07/15/21 11:30 36.7 C 54 L 20 122/69 99 07/15/21 10:41 60 07/15/21 07:37 36.7 C 64 20 124/70 96 07/15/21 03:44 36.6 C 64 18 99/61 L 97 Critical Care Results & Data Vital Signs (Past 12 Hours) Vital Signs Temp Pulse Pulse Resp BP Pulse Ox 07/15/21 11:30 36.7 C 54 L 20 122/69 99 07/15/21 10:41 60 07/15/21 07:37 36.7 C 64 20 124/70 96 07/15/21 03:44 36.6 C 64 18 99/61 L 97 Lab & Micro Results (Past 24 Hours) No Data to Display No Data to Display No Data to Display Diagnostic Findings (Past 24 Hours) Chest X-Ray 07/15/21 10:34 XR chest 2V PA/lateral CLINICAL HISTORY: Hemoptysis/Pul Infarct. Left lung pain COMPARISON STUDY: 07/10/2021 TECHNIQUE: 2 views of the chest FINDINGS: Frontal and lateral radiographs of the chest demonstrate the cardiomediastinal silhouette to be within normal limits. Compared to previous study, there is now a small to moderate-sized left pleural effusion. The lungs are clear of alveolar opacities. Liver, there is left basilar atelectasis. There is no evidence for right pleural effusion. There is no evidence for vascular congestion. There is no acute osseous pathology. IMPRESSION: 1. Interval development of small to moderate-sized left pleural effusion with left basilar atelectasis. ACT 112: Negative or not required by law. Electronically signed by: Brandan Nolasco M.D. 07/15/2021 11:30 AM I & O Totals 24 Hours 07/14/21 07/15/21 07/16/21 06:59 06:59 06:59 Intake Total 1395.533 / 3899.792 8208.799 / 4261.799 107.067 / 107.067 Output Total 4400 / 4400 6850 / 6850 Balance -3004.467 / -3004.467 -2588.201 / -2588.201 107.067 / 107.067 Cumulative 07/10/21 15:20 thru 07/15/21 09:22 Intake Total 48354.899 Output Total 54378 Balance -7614.101 RT Ventilator Mngmt (Last Documented) Ventilator Ordered Settings Respiratory Rate 20 07/15/21 11:30 Ventilator - PT Measurements Respiratory Rate 20 PG Care Time/CCT Total # of Minutes Spent Total Time Spent with Patient: Total time spent is greater than 50% in coordination of care (as documented) at patient's floor/unit and/or counseling patient: 30 minutes Coding Level of Care Code 01735 Subseq Hosp Care Lvl 2 Diagnoses Bilateral pulmonary embolism I26.99 Pulmonary infarct I26.99 Cough with hemoptysis R04.2 Pleurisy R09.1 Pleural effusion, left J90 Time Spent (min) 30
--- NOTE | 2021-07-15 14:55 | Procedure Note ---
Procedure Note Date of Service July 15, 2021 Note Bedside ultrasound performed to evaluate left pleural effusion Coding CPT Codes Pulmonary/Thoracic - Pulmonary and Thoracic: 42867 US, Chest, real time with imaging documentation ([id number]) [facility] [place] ([place]) Pulmonary/Thoracic Procedure 1: Pulmonary and Thoracic: 39327 US, Chest, real time with imaging documentation
--- NOTE | 2021-07-15 15:17 | Hospitalist Progress Note ---
Date of Service July 15, 2021 Assessment & Plan (1) Bilateral pulmonary embolism: Plan: Bilateral pulmonary embolism Admitting CTA chest positive for extensive bilateral segmental/subsegmental pulmonary emboli, no evidence of right-sided heart strain. Trace pleural effusion. Admitting CTAP: No acute finding except the findings described in CTA chest. Admitting troponin negative. 07/11 echo: Ejection fraction 55 to 60%, grossly normal right ventricular chamber size and systolic function on technically limited visualization. Pulmonary artery systolic pressure around 35 to 40 mmHg. Continue IV Heparin bolus/gtt Pulmonology evaluated the patient. Recommends outpatient hematology follow-up. hypercoagulable w/u pending Saturating normally on room air and has been on intravenous heparin (2) Pulmonary infarct: Plan: Left Sided chest pain Hemoptysis Patient Reports coughing up blood-tinged sputum. Consider rediscussion with pulm if ongoing/worsening. Hemoptysis has been improving Will likely discharge tomorrow on further improvement on hemoptysis Hemoptysis has improved a lot but the pain has been worsening Chest x-ray did show left-sided pleural effusion We will ask pulmonary to reevaluate (3) Left-sided chest pain: Plan: Has significant left-sided chest pain due to pulmonary infarct Will start Percocet Pain medication doses have been increased Plan: Hypomagnesemia Monitor and replete as appropriate. DVT prophylaxis: IV heparin Dispo: PCU Full code PCP: Erica Nicolas Likely discharge tomorrow Admission and Anticipated Discharge Date Admission Date: July 10, 2021 Subjective 07/14/2021 The patient was seen and examined in telemetry unit He has been complaining of left-sided chest pain with movement, cough and deep breathing His hemoptysis seems to be improving Denies any other significant symptoms 07/15/2021 The patient was seen and examined in telemetry unit He complains to have more pain in the left sided chest wall specially with breathing and movement Denies any fever and/or chills Saturating normally on room air Review of Systems Review of Systems: All systems reviewed and are unremarkable except as noted below Physical Exam Physical Exam: Lying in bed with some discomfort due to left-sided chest pain Constitutional: well developed and well nourished; not ill appearing Eyes: PERRL, conjunctivae normal, anicteric sclerae ENMT: external ear and nose normal, oropharynx normal Neck: trachea midline, no thyromegaly Respiratory: + respiratory distress (Due to chest pain with deep breathing) Auscultation: + diminished lung sounds and + crackles (Minimal crackles at the left base) Cardiovascular: Rate/Rhythm: regular rate and regular rhythm; not tachycardic Heart Sounds: normal S1 and normal S2; no murmur Chest (Breasts): Additional Comments: Left-sided chest wall pain Gastrointestinal (Abdomen): Inspection/Auscultation: normal bowel sounds; abdomen not distended Percussion/Palpation: abdomen soft; abdomen nontender Musculoskeletal: No acute arthritis involving any joint Neurologic: Alert, awake and oriented x3 Results & Data Results & Data ([facility]) Vital Signs (Past 12 Hours) Vital Signs Temp Pulse Pulse Resp BP Pulse Ox 07/15/21 14:57 66 07/15/21 11:30 36.7 C 54 L 20 122/69 99 07/15/21 10:41 60 07/15/21 07:37 36.7 C 64 20 124/70 96 07/15/21 03:44 36.6 C 64 18 99/61 L 97 Medications Administered Current Inpatient Medications Acetaminophen (Acetaminophen 325 Mg Tab) 650 mg PO Q4H PRN PRN Reason: Pain or Fever Stop: 08/09/21 18:00 Acetaminophen (Acetaminophen 500 Mg Tab) 500 mg PO QID [facility] Stop: 08/09/21 20:59 Last Admin: 07/15/21 13:15 Dose: Not Given Documented by: Al Hydrox/Mg Hydrox/Simethicone (Aluminum/Magnesium Susp 30 Ml Udc) 15 ml PO Q4H PRN PRN Reason: Dyspepsia Stop: 08/09/21 18:00 Diclofenac Sodium (Diclofenac Sod 1% Gel 100 Gm Tube) 2 gm EXT Q6H [facility] Stop: 08/10/21 09:44 Last Admin: 07/15/21 14:49 Dose: 2 gm Documented by: Famotidine (Famotidine 10 Mg Tablet) 10 mg PO HS [facility] Stop: 08/09/21 20:59 Last Admin: 07/14/21 21:40 Dose: 10 mg Documented by: Guaifenesin/Dextromethorphan (Guaifenesin/Dextrom Syrup 200mg/20mg 10ml Udc) 10 ml PO Q6H PRN PRN Reason: Cough Stop: 08/13/21 11:10 Last Admin: 07/14/21 11:30 Dose: 10 ml Documented by: Heparin Sodium/Dextrose (Heparin Sodium/Dextrose) 25,000 units in 500 mls @ 44 mls/hr IV .[id number] [facility]; Protocol Stop: 08/09/21 17:14 Last Admin: 07/15/21 09:22 Dose: 2,200 units/hr, 44 mls/hr Documented by: Ketorolac Tromethamine (Ketorolac Tromethamine 15 Mg/Ml Vial) 15 mg IV Q6H PRN PRN Reason: Pain Stop: 07/16/21 00:00 Last Admin: 07/15/21 09:27 Dose: 15 mg Documented by: Lidocaine (Lidocaine 5% 1 Patch) 1 patch TD QAM [facility] Stop: 08/10/21 15:14 Last Admin: 07/15/21 09:23 Dose: 1 patch Documented by: Magnesium Hydroxide (Magnesium Hydroxide Susp 30 Ml Udc) 30 ml PO Q12H PRN PRN Reason: Constipation Stop: 08/09/21 18:00 Miscellaneous (Remove Lidoderm Patch) 1 ea N/A DAILY@2100 [facility] Stop: 08/10/21 22:59 Last Admin: 07/14/21 22:07 Dose: 1 ea Documented by: Morphine Sulfate (Morphine Sulfate 4 Mg/Ml 1 Ml Carp\Vial) 4 mg IV Q6H PRN PRN Reason: severe pain Stop: 07/24/21 18:00 Last Admin: 07/15/21 04:36 Dose: 4 mg Documented by: Ondansetron HCl (Ondansetron Inj 2 Mg/Ml 2 Ml Vial) 4 mg IV Q6H PRN PRN Reason: Nausea Stop: 08/09/21 18:00 Oxycodone HCl (Oxycodone Hcl Ir 5 Mg Tab (Immediate Release)) 10 mg PO Q6H PRN PRN Reason: Pain Stop: 07/29/21 11:04 Last Admin: 07/15/21 14:48 Dose: 10 mg Documented by: Pantoprazole Sodium (Pantoprazole 40 Mg Tab) 40 mg PO DAILY [facility] Stop: 08/10/21 08:59 Last Admin: 07/15/21 09:23 Dose: 40 mg Documented by: Polyethylene Glycol (Polyethylene (Miralax) 17 Gm Pack) 17 gm PO DAILY PRN PRN Reason: Constipation Stop: 08/09/21 18:00 Topiramate (Topiramate 25 Mg Tab) 25 mg PO DAILY [facility] Stop: 08/10/21 08:59 Last Admin: 07/15/21 09:23 Dose: 25 mg Documented by:
[2021-07-15] MEDS: FAMOTIDINE 10 MG TABLET PO SCH (20:30)
[2021-07-15 23:31] LABS: B2 Glycoprotein IgG <2.0 U/mL (<20.0); B2 Glycoprotein IgM 5.6 U/mL (<20.0); Protein S Functional(Activity) 98 % (70-150)
[2021-07-16 00:57] LABS: Anti Cardiolipin Ab IgG <2.0 GPL-U/mL; Anti Cardiolipin Ab IgM 4.8 MPL-U/mL; Anti-Thrombin III Activity 97 % normal (80-135); PTT LA Screen 39 sec (<=40)
[2021-07-16] MEDS: DICLOFENAC SOD 1% GEL 100 GM TUBE EXT SCH ×5 (03:19→21:56)
[2021-07-16 07:16] LABS: Partial Thromboplastin Ratio 1.2; Partial Thromboplastin Time 31.9 Seconds (21.0-31.0)
[2021-07-16] MEDS: oxyCODONE HCL IR 5 MG TAB (IMMEDIATE RELEASE) PO PRN ×3 (07:45→22:22)
[2021-07-16] MEDS: TOPIRAMATE 25 MG TAB PO SCH (07:48)
[2021-07-16] MEDS: LIDOCAINE 5% 1 PATCH TD SCH (07:48)
[2021-07-16] MEDS: PANTOprazole 40 MG TAB PO SCH (07:49)
[2021-07-16] MEDS: ACETAMINOPHEN 500 MG TAB PO SCH ×4 (07:53→20:07)
--- NOTE | 2021-07-16 11:14 | Pulmonology Progress Note ---
Date of Service July 16, 2021 Assessment & Plan (1) Bilateral pulmonary embolism: (2) Pulmonary infarct: (3) Cough with hemoptysis: (4) Pleurisy: (5) Pleural effusion, left: Plan: Impression: 35-year-old -[place] male currently incarcerated at the [facility] nursing home. Patient presented to the emergency department 07/10/2021 for left-sided chest pain, shortness of breath, hemoptysis x3 days. CTA of the chest was performed and patient found to have bilateral pulmonary emboli with left-sided infarct. Initial pulmonary consultation was performed by Dr. Gorman on 07/11/2021. Patient was on heparin drip and then transition to apixaban 5 mg p.o. twice daily. Patient seemed to have worsening hemoptysis so primary team converted patient back to heparin drip. Chest x-ray today reveals interval development of left pleural effusion. Recommendations: 1. Left pleural effusion: Patient will undergo ultrasound-guided catheter thoracentesis today. Fluid will be sent for routine microbiologic and cytologic analysis. Anticipate that this is secondary to the patient's pulmonary infarcts and pulmonary embolism. We will follow up on pleural fluid analysis and follow- up imaging studies 2. Bilateral pulmonary emboli: Okay to restart anticoagulation at 1500 today 3. Hemoptysis: Not unexpected given anticoagulation PE and pulmonary infarcts. Continue to monitor clinically. 4. Pulmonary infarct: Continue supportive care 5. Pleurisy: Continue analgesia. May consider Toradol and Ultram as alternatives. Admission and Anticipated Discharge Date Admission Date: July 10, 2021 Subjective Patient seen and examined. EMR reviewed. Discussed with [facility]. The patient continues to complain of some chest discomfort on the left. He is on room air. He occasionally is coughing and expectorating some dark blood- tinged phlegm. He is not had any syncope or presyncope. His heparin has been on hold for thoracentesis. Review of Systems Review of Systems: All systems reviewed & are unremarkable except as noted in Subjective Physical Exam Constitutional: WD/WN, vitals as above Neck: trachea midline, no thyromegaly Respiratory: normal respiratory effort; no respiratory distress, no labored breathing and not tachypneic Decreased breath sounds with dullness to percussion at the left lung base Cardiovascular: RRR, no murmur, no edema Gastrointestinal (Abdomen): normal bowel sounds, soft, nontender, no hepatospl enomegaly Musculoskeletal: Extremities: extremities normal to inspection Skin: no rashes, warm and dry Neurologic: Nonfocal exam Lymphatic: no cervical lymphadenopathy Results & Data Results & Data ([facility]) Vital Signs (Past 12 Hours) Vital Signs Temp Pulse Pulse Resp BP Pulse Ox 07/16/21 07:53 36.7 C 60 18 125/83 96 07/16/21 03:24 36.8 C 85 16 115/70 94 07/16/21 02:56 54 L Laboratory Results 07/14/21 07:14 07/14/21 07:14 Diagnostic Findings No new imaging PG Care Time/CCT Total # of Minutes Spent Total Time Spent with Patient: Total time spent is greater than 50% in coordination of care (as documented) at patient's floor/unit and/or counseling patient: Coding Level of Care Code 88619 Subseq Hosp Care Lvl 2 Diagnoses Bilateral pulmonary embolism I26.99 Pulmonary infarct I26.99 Cough with hemoptysis R04.2 Pleurisy R09.1 Pleural effusion, left J90
--- NOTE | 2021-07-16 11:16 | Procedure Note ---
Procedure Note Date of Service July 16, 2021 Note Procedure: Diagnostic therapeutic ultrasound-guided catheter thoracentesis, left Call Center Coordinator: Dr. Polo Woodruff Indication: Pleural effusion Consent: Signed by patient and verified with timeout prior to procedure Anesthesia: 8 mL's 1% lidocaine without epinephrine local. Procedure: Consent was verified and timeout performed. Appropriate imaging studies were reviewed prior to the procedure. Patient was placed in a seated position and limited thoracic ultrasound was performed of the bilateral chest. Small effusion was identified on the left. No significant effusion on the right. Site appropriate for thoracentesis on the left was selected. The skin was prepped and draped in normal sterile fashion. Lidocaine was used for local analgesia. Fluid was aspirated via the finder needle. A small skin ishaan was made with the scalpel and the catheter over the needle apparatus was advanced over the rib into the pleural space. Using the syringe one-way valve system, a total of 400mL's of amberfluid was removed. Procedure was terminated due to ability to withdraw any additional fluid. The catheter was removed and observed to be intact. A sterile dressing was applied. Post procedure chest x-ray was ordered. Post procedure ultrasound demonstrated lung sliding present with small amount of residual fluid. Fluid was sent for cell count differential, Gram stain and culture, LDH, glucose, total protein, and pH. The patient tolerated the procedure well without obvious complication Coding CPT Codes Pulmonary/Thoracic - Pulmonary and Thoracic: 70688 Thoracentesis w imaging ([id number]) [facility] [place] Codes (Charges) Pulmonary/Thoracic Procedure 1: Pulmonary and Thoracic: 76727 Thoracentesis w imaging
[2021-07-16 11:45] LABS: Glucose Pleural Fluid 91 mg/dl; LDH Pleural Fluid 290 U/L; Total Protein Pleural Fluid 4.9 gm/dl
--- NOTE | 2021-07-16 11:49 | XRay Report ---
XR chest 1V portable at 11:05 AM CLINICAL HISTORY: S/P Thoracentesis. Evaluate for pneumothorax. COMPARISON STUDY: 07/15/2021 at 11:01 AM TECHNIQUE: 1 view of the chest FINDINGS: Single frontal view of the chest demonstrates the cardiomediastinal silhouette to be within normal li mits. Compared to previous examination, the patient is status post left thoracentesis with decreased left pleural effusion present. There is no evidence for pneumothorax. The lungs are clear of alveolar opacities. There is no evidence for right pleural effusion. There is no evidence for vascular conges tion. There is no acute osseous pathology. IMPRESSION: 1. Status post left thoracentesis with residual blunting of the left costophrenic angle. No evidence for pneumothorax. ACT 112: Negative or not required by law. Electronically signed by: Brandan Nolasco M.D. 07/16/2021 11:48 AM
[2021-07-16 12:33] LABS: Appearance Pleural Fluid CLOUDY; Basophils, Fluid 0 %; Color Pleural Fluid AMBER; Eosinophils, Fluid 0 %; Lymphocytes, Fluid 19 %; Mono,Macrophage,Mesothelial 74 %; Neutrophils, Fluid 7 %; RBC Pleural Fluid (A) 16000 /uL; Source Pleural Fluid LEFT LUNG; WBC Pleural Fluid (A) 4802 /uL
[2021-07-16] MEDS: MoRPHine SULFATE 4 MG/ML 1 ML CARP\\VIAL IV PRN (12:58)
[2021-07-16] MEDS: HEPARIN SODIUM/DEXTROSE 25,000 UNITS/500 ML BAG IV SCH (15:48)
--- NOTE | 2021-07-16 16:02 | Hospitalist Progress Note ---
Date of Service July 16, 2021 Assessment & Plan (1) Bilateral pulmonary embolism: Plan: Bilateral pulmonary embolism Admitting CTA chest positive for extensive bilateral segmental/subsegmental pulmonary emboli, no evidence of right-sided heart strain. Trace pleural effusion. Admitting CTAP: No acute finding except the findings described in CTA chest. Admitting troponin negative. 07/11 echo: Ejection fraction 55 to 60%, grossly normal right ventricular chamber size and systolic function on technically limited visualization. Pulmonary artery systolic pressure around 35 to 40 mmHg. Continue IV Heparin bolus/gtt Pulmonology evaluated the patient. Recommends outpatient hematology follow-up. hypercoagulable w/u pending Saturating normally on room air and has been on intravenous heparin Status post left thoracentesis and heparin infusion has been restarted at 3 PM today Likely discharge tomorrow Left pleural effusion Status post thoracentesis of 400 mL rachelle-colored fluid No signs of infection in the pleural fluid and it seems to be exudative likely secondary to inflammatory exudate from pulmonary infarct No bleeding (2) Pulmonary infarct: Plan: Left Sided chest pain Hemoptysis Patient Reports coughing up blood-tinged sputum. Consider rediscussion with pulm if ongoing/worsening. Hemoptysis has been improving Will likely discharge tomorrow on further improvement on hemoptysis Hemoptysis has improved a lot but the pain has been worsening Chest x-ray did show left-sided pleural effusion We will ask pulmonary to reevaluate No more hemoptysis (3) Left-sided chest pain: Plan: Has significant left-sided chest pain due to pulmonary infarct Will start Percocet Pain medication doses have been increased Pain has been persisting Plan: Hypomagnesemia Monitor and replete as appropriate. DVT prophylaxis: IV heparin Dispo: PCU Full code PCP: Erica Nicolas Likely discharge tomorrow Admission and Anticipated Discharge Date Admission Date: July 10, 2021 Subjective 07/14/2021 The patient was seen and examined in telemetry unit He has been complaining of left-sided chest pain with movement, cough and deep breathing His hemoptysis seems to be improving Denies any other significant symptoms 07/15/2021 The patient was seen and examined in telemetry unit He complains to have more pain in the left sided chest wall specially with breathing and movement Denies any fever and/or chills Saturating normally on room air 07/16/2021 The patient was seen and examined in telemetry unit Still has some pain in the left sided chest wall but has been better Status post left thoracentesis of 400 mm rachelle-colored fluid seems to be exudative likely secondary to inflammatory response to pulmonary infarct Otherwise better Review of Systems Review of Systems: All systems reviewed and are unremarkable except as noted below Physical Exam Physical Exam: Lying in bed with some discomfort due to left-sided chest pain Constitutional: well developed and well nourished; not ill appearing Eyes: PERRL, conjunctivae normal, anicteric sclerae ENMT: external ear and nose normal, oropharynx normal Neck: trachea midline, no thyromegaly Respiratory: + respiratory distress (Due to chest pain with deep breathing) Auscultation: + diminished lung sounds and + crackles (Minimal crackles at the left base) Cardiovascular: Rate/Rhythm: regular rate and regular rhythm; not tachycardic Heart Sounds: normal S1 and normal S2; no murmur Gastrointestinal (Abdomen): Inspection/Auscultation: normal bowel sounds; abdomen not distended Percussion/Palpation: abdomen soft; abdomen nontender Musculoskeletal: No acute arthritis in any joint Neurologic: normal touch/pain/proprioception; no focal motor deficits Results & Data Results & Data ([facility]) Vital Signs (Past 12 Hours) Vital Signs Temp Pulse Pulse Resp BP Pulse Ox 07/16/21 12:14 36.9 C 58 L 18 131/69 96 07/16/21 11:39 58 L 07/16/21 07:53 36.7 C 60 18 125/83 96 Medications Administered Current Inpatient Medications Acetaminophen (Acetaminophen 325 Mg Tab) 650 mg PO Q4H PRN PRN Reason: Pain or Fever Stop: 08/09/21 18:00 Acetaminophen (Acetaminophen 500 Mg Tab) 500 mg PO QID [facility] Stop: 08/09/21 20:59 Last Admin: 07/16/21 12:58 Dose: 500 mg Documented by: Al Hydrox/Mg Hydrox/Simethicone (Aluminum/Magnesium Susp 30 Ml Udc) 15 ml PO Q4H PRN PRN Reason: Dyspepsia Stop: 08/09/21 18:00 Diclofenac Sodium (Diclofenac Sod 1% Gel 100 Gm Tube) 2 gm EXT Q6H GT Stop: 08/10/21 09:44 Last Admin: 07/16/21 07:50 Dose: Not Given Documented by: Famotidine (Famotidine 10 Mg Tablet) 10 mg PO HS [facility] Stop: 08/09/21 20:59 Last Admin: 07/15/21 20:30 Dose: 10 mg Documented by: Guaifenesin/Dextromethorphan (Guaifenesin/Dextrom Syrup 200mg/20mg 10ml Udc) 10 ml PO Q6H PRN PRN Reason: Cough Stop: 08/13/21 11:10 Last Admin: 07/14/21 11:30 Dose: 10 ml Documented by: Heparin Sodium/Dextrose (Heparin Sodium/Dextrose) 25,000 units in 500 mls @ 44 mls/hr IV .[id number] [facility]; Protocol Stop: 08/09/21 17:14 Last Admin: 07/16/21 15:48 Dose: 2,200 units/hr, 44 mls/hr Documented by: Lidocaine (Lidocaine 5% 1 Patch) 1 patch TD QAM [facility] Stop: 08/10/21 15:14 Last Admin: 07/16/21 07:48 Dose: 1 patch Documented by: Magnesium Hydroxide (Magnesium Hydroxide Susp 30 Ml Udc) 30 ml PO Q12H PRN PRN Reason: Constipation Stop: 08/09/21 18:00 Miscellaneous (Remove Lidoderm Patch) 1 ea N/A DAILY@2100 [facility] Stop: 08/10/21 22:59 Last Admin: 07/15/21 22:21 Dose: 1 ea Documented by: Morphine Sulfate (Morphine Sulfate 4 Mg/Ml 1 Ml Carp\Vial) 4 mg IV Q6H PRN PRN Reason: severe pain Stop: 07/24/21 18:00 Last Admin: 07/16/21 12:58 Dose: 4 mg Documented by: Ondansetron HCl (Ondansetron Inj 2 Mg/Ml 2 Ml Vial) 4 mg IV Q6H PRN PRN Reason: Nausea Stop: 08/09/21 18:00 Oxycodone HCl (Oxycodone Hcl Ir 5 Mg Tab (Immediate Release)) 10 mg PO Q6H PRN PRN Reason: Pain Stop: 07/29/21 11:04 Last Admin: 07/16/21 07:45 Dose: 10 mg Documented by: Pantoprazole Sodium (Pantoprazole 40 Mg Tab) 40 mg PO DAILY [facility] Stop: 08/10/21 08:59 Last Admin: 07/16/21 07:49 Dose: 40 mg Documented by: Polyethylene Glycol (Polyethylene (Miralax) 17 Gm Pack) 17 gm PO DAILY PRN PRN Reason: Constipation Stop: 08/09/21 18:00 Topiramate (Topiramate 25 Mg Tab) 25 mg PO DAILY GT Stop: 08/10/21 08:59 Last Admin: 07/16/21 07:48 Dose: 25 mg Documented by:
[2021-07-16] MEDS: FAMOTIDINE 10 MG TABLET PO SCH (20:08)
[2021-07-16 23:07] LABS: Partial Thromboplastin Ratio 2.1
[2021-07-16 23:11] LABS: Partial Thromboplastin Time 55.8 Seconds (21.0-31.0)
[2021-07-17] MEDS: DICLOFENAC SOD 1% GEL 100 GM TUBE EXT SCH ×4 (03:24→22:18)
[2021-07-17] MEDS: HEPARIN SODIUM/DEXTROSE 25,000 UNITS/500 ML BAG IV SCH ×2 (03:24→15:22)
[2021-07-17 06:11] LABS: Basophils # (auto) 0.08 K/uL (0-0.2); Eosinophils # (auto) 0.73 K/uL (0-0.5); Eosinophils % (auto) 8.9 %; Hematocrit (blood only) 47.6 % (42-52); Immature Granulocytes # (auto) 0.11 K/uL (0.00-0.02); Immature Granulocytes % (auto) 1.3 %; Lymphocytes # (auto) 1.95 K/uL (1.2-3.4); Lymphocytes % (auto) 23.8 %; Mean Corpuscular Hemoglobin 30.1 pg (25-34); Mean Corpuscular Hgb Conc 33.6 g/dL (32-36); Mean Corpuscular Volume 89.6 fL (80-100); Mean Platelet Volume 8.6 fL (7.4-10.4); Monocytes # (auto) 0.72 K/uL (0.11-0.59); Monocytes % (auto) 8.8 %; Neutrophils # (auto) 4.59 K/uL (1.4-6.5); Neutrophils % (auto) 56.2 %; Platelet Count 359 K/uL (130-400); RDW Coefficient of Variation 13.3 % (11.5-14.5); RDW Standard Deviation 43.7 fL (36.4-46.3); Red Blood Count 5.31 M/uL (4.7-6.1); White Blood Count 8.18 K/uL (4.8-10.8)
[2021-07-17 06:38] LABS: Partial Thromboplastin Ratio 2.3
[2021-07-17 06:41] LABS: BUN Creatinine Ratio 15.4 (10-20); Calcium 9.2 mg/dl (8.5-10.1); Creatinine Clr Calc Pharmacy 152.4 ml/min; Est GFR (African American) 126.1 ml/min; Est GFR (Non-African American) 108.8 ml/min; Partial Thromboplastin Time 60.1 Seconds (21.0-31.0); Potassium 4.2 mmol/L (3.5-5.1)
[2021-07-17] MEDS: LIDOCAINE 5% 1 PATCH TD SCH (08:39)
[2021-07-17] MEDS: TOPIRAMATE 25 MG TAB PO SCH (08:40)
[2021-07-17] MEDS: PANTOprazole 40 MG TAB PO SCH (08:41)
[2021-07-17] MEDS: ACETAMINOPHEN 500 MG TAB PO SCH ×4 (08:43→19:59)
--- NOTE | 2021-07-17 08:50 | Pulmonology Progress Note ---
Date of Service July 17, 2021 Assessment & Plan (1) Bilateral pulmonary embolism: (2) Pulmonary infarct: (3) Cough with hemoptysis: (4) Pleurisy: (5) Pleural effusion, left: Plan: Impression: 35-year-old -[place] male currently incarcerated at the [facility]. Patient presented to the emergency department 07/10/2021 for left-sided chest pain, shortness of breath, hemoptysis x3 days. CTA of the chest was performed and patient found to have bilateral pulmonary emboli with left-sided infarct. Underwent diagnostic therapeutic thoracentesis 07/16/2021. Continues to have chest pain Recommendations: 1. Left pleural effusion: Status post thoracentesis on the left. Fluid characteristics appear consistent with an exudate likely secondary to pulmonary infarct/PE. Given the patient's persistent pain, will repeat noncontrast CT scan of the chest to evaluate for residual fluid based on the appearance of his x-ray. 2. Bilateral pulmonary emboli: Continue anticoagulation. Defer to outpatient hematology evaluation for thrombophilia work-up and determination of duration of anticoagulation 3. Hemoptysis: Not unexpected given anticoagulation PE and pulmonary infarcts. Continue to monitor clinically. 4. Pulmonary infarct: Continue supportive care 5. Pleurisy: Restart Toradol 30 mg every 6 scheduled to see if we can offer him some relief. Would pursue a short course of prednisone to see if we can decrease inflammatory response. Admission and Anticipated Discharge Date Admission Date: July 10, 2021 Subjective Patient continues to complain of some pain. He is slightly better after the thoracentesis but the pain is definitely not resolved. He complains of 8 out of 10 pain currently. He did better with Toradol. He is not having any shortness of breath. No cough or sputum production. No hemoptysis. Review of Systems Review of Systems: All systems reviewed & are unremarkable except as noted in Subjective Physical Exam Constitutional: WD/WN, vitals as above Neck: trachea midline, no thyromegaly Respiratory: normal respiratory effort; no respiratory distress, no labored breathing and not tachypneic Cardiovascular: RRR, no murmur, no edema Gastrointestinal (Abdomen): normal bowel sounds, soft, nontender, no h epatosplenomegaly Musculoskeletal: Extremities: extremities normal to inspection Skin: no rashes, warm and dry Lymphatic: no cervical lymphadenopathy Results & Data Results & Data ([facility]) Vital Signs (Past 12 Hours) Vital Signs Temp Pulse Pulse Resp BP Pulse Ox 07/17/21 08:17 36.6 C 60 18 125/71 96 07/17/21 03:00 36.7 C 58 L 20 126/74 96 07/16/21 23:34 36.8 C 56 L 18 121/66 97 07/16/21 22:19 56 L Laboratory Results 07/17/21 05:48 07/17/21 05:48 Pleural fluid studies: Differential: 7% neutrophils, 19% lymphocytes, 0 eosinophils, 74% mesothelial cells pH 7.57 Total protein 4.9 LDH 290 Glucose 91 Cytology pending Gram stain and culture: Moderate white blood cells with no organisms Diagnostic Findings XR chest 1V portable at 11:05 AM CLINICAL HISTORY: S/P Thoracentesis. Evaluate for pneumothorax. COMPARISON STUDY: 07/15/2021 at 11:01 AM TECHNIQUE: 1 view of the chest FINDINGS: Single frontal view of the chest demonstrates the cardiomediastinal silhouette to be within normal limits. Compared to previous examination, the patient is status post left thoracentesis with decreased left pleural effusion present. There is no evidence for pneumothorax. The lungs are clear of alveolar opacities. There is no evidence for right pleural effusion. There is no evidence for vascular congestion. There is no acute osseous pathology. IMPRESSION: 1. Status post left thoracentesis with residual blunting of the left costophrenic angle. No evidence for pneumothorax. PG Care Time/CCT Total # of Minutes Spent Total Time Spent with Patient: Total time spent is greater than 50% in coordination of care (as documented) at patient's floor/unit and/or counseling patient: Coding Level of Care Code 57142 Subseq Hosp Care Lvl 3 Diagnoses Bilateral pulmonary embolism I26.99 Pulmonary infarct I26.99 Cough with hemoptysis R04.2 Pleurisy R09.1 Pleural effusion, left J90
[2021-07-17] MEDS: predniSONE 20 MG TAB PO SCH (09:30)
[2021-07-17] MEDS: KETOROLAC 30 MG/ML VIAL IV SCH ×4 (09:31→23:59)
--- NOTE | 2021-07-17 09:50 | CT Scan Report ---
CT SCAN OF THE CHEST WITHOUT IV CONTRAST CLINICAL HISTORY: Pleural effusion status post thoracentesis. COMPARISON STUDY: Chest CT dated 07/10/2021. Chest x-ray dated 07/16/2021. TECHNIQUE: CT scan of the thorax was performed from the thoracic inlet to the upper abdomen. Images are reviewed in the axial, sagittal, and coronal planes. IV contrast was not administered for this ex amination as per the referring clinician. A dose lowering technique was utilized adhering to the dariana tong of JOSE RAFAEL. CT DOSE: 913.08 mGy.cm FINDINGS: Thyroid: Imaged portions of the thyroid gland are normal in size and attenuation. Thoracic aorta: The thoracic aorta is normal in caliber and demonstrates standard 3-vessel arch anato my. Heart: The heart is normal in size and without pericardial effusion. Lungs and pleural spaces: Evaluation of the lung parenchyma is degraded by motion artifact. Mild emph ysematous change is noted at the apices. The trachea and central airways are clear. There is trace ri ght pleural effusion with right basilar atelectasis. There is trace residual left pleural effusion, w ith foci of wedge-shaped subpleural consolidation in the left lower lobe and lingula. No pneumothorax is seen. Mediastinum: A mildly enlarged prevascular node measures 11 mm in short axis. Leyda: Not well assessed without IV contrast. Axillae: There is no axillary lymphadenopathy. Upper abdomen: Partially visualized upper abdominal viscera is within normal limits. Skeletal structures: No lytic or blastic bony lesions are seen. IMPRESSION: 1. Mild emphysema. 2. There is trace residual left pleural effusion status post thoracentesis. No pneumothorax is identi fied. 3. There are foci of wedge-shaped subpleural consolidation in the left lower lobe and lingula. This h as increased from 07/10/2021. Given the findings of recent pulmonary emboli, these likely represent ev olving pulmonary infarcts. Correlate clinically for evidence of a superimposed infectious/inflammator y pneumonitis. 4. There is trace pleural fluid at the right lung base. 5. A mildly enlarged prevascular node may be reactive. ACT 112: Negative or not required by law. Electronically signed by: Michi Coates M.D. 07/17/2021 9:48 AM
--- NOTE | 2021-07-17 17:06 | Hospitalist Progress Note ---
Date of Service July 17, 2021 Assessment & Plan (1) Bilateral pulmonary embolism: Plan: Bilateral pulmonary embolism Admitting CTA chest positive for extensive bilateral segmental/subsegmental pulmonary emboli, no evidence of right-sided heart strain. Trace pleural effusion. Admitting CTAP: No acute finding except the findings described in CTA chest. Admitting troponin negative. 07/11 echo: Ejection fraction 55 to 60%, grossly normal right ventricular chamber size and systolic function on technically limited visualization. Pulmonary artery systolic pressure around 35 to 40 mmHg. Continue IV Heparin bolus/gtt Pulmonology evaluated the patient. Recommends outpatient hematology follow-up. hypercoagulable w/u pending Saturating normally on room air and has been on intravenous heparin Status post left thoracentesis and heparin infusion has been restarted at 3 PM today Remains stable with minimal pain at the left lateral chest wall Likely discharge tomorrow Left pleural effusion Status post thoracentesis of 400 mL rachelle-colored fluid No signs of infection in the pleural fluid and it seems to be exudative likely secondary to inflammatory exudate from pulmonary infarct No bleeding Appreciate pulmonary input and recommended (2) Pulmonary infarct: Plan: Left Sided chest pain Hemoptysis Patient Reports coughing up blood-tinged sputum. Consider rediscussion with pulm if ongoing/worsening. Hemoptysis has been improving Will likely discharge tomorrow on further improvement on hemoptysis Hemoptysis has improved a lot but the pain has been worsening Chest x-ray did show left-sided pleural effusion We will ask pulmonary to reevaluate No more hemoptysis Has been getting steroid for pleuritic pain (3) Left-sided chest pain: Plan: Has significant left-sided chest pain due to pulmonary infarct Will start Percocet Pain medication doses have been increased Pain has been persisting Plan: Hypomagnesemia Monitor and replete as appropriate. DVT prophylaxis: IV heparin Dispo: PCU Full code PCP: Erica Nicolas Likely discharge tomorrow Admission and Anticipated Discharge Date Admission Date: July 10, 2021 Subjective 07/14/2021 The patient was seen and examined in telemetry unit He has been complaining of left-sided chest pain with movement, cough and deep breathing His hemoptysis seems to be improving Denies any other significant symptoms 07/15/2021 The patient was seen and examined in telemetry unit He complains to have more pain in the left sided chest wall specially with breathing and movement Denies any fever and/or chills Saturating normally on room air 07/16/2021 The patient was seen and examined in telemetry unit Still has some pain in the left sided chest wall but has been better Status post left thoracentesis of 400 mm rachelle-colored fluid seems to be exudative likely secondary to inflammatory response to pulmonary infarct Otherwise better 07/17/2021 The patient was seen and examined in telemetry unit He still complains of pain in the left lower chest wall without any shortness of breath His hemoptysis seems to be controlled Review of Systems Review of Systems: All systems reviewed and are unremarkable except as noted below Physical Exam Physical Exam: Lying in bed with some discomfort due to left-sided chest pain Constitutional: well developed and well nourished; not ill appearing Eyes: PERRL, conjunctivae normal, anicteric sclerae ENMT: external ear and nose normal, oropharynx normal Neck: trachea midline, no thyromegaly Respiratory: + respiratory distress (Due to chest pain with deep breathing) Auscultation: + diminished lung sounds and + crackles (Minimal crackles at the left base) Cardiovascular: Rate/Rhythm: regular rate and regular rhythm; not tachycardic Heart Sounds: normal S1 and normal S2; no murmur Gastrointestinal (Abdomen): Inspection/Auscultation: normal bowel sounds; abdomen not distended Percussion/Palpation: abdomen soft; abdomen nontender Musculoskeletal: No acute arthritis in any joint Neurologic: normal touch/pain/proprioception; no focal motor deficits Results & Data Results & Data ([facility]) Vital Signs (Past 12 Hours) Vital Signs Temp Pulse Pulse Resp BP Pulse Ox 07/17/21 16:00 64 07/17/21 15:26 36.7 C 63 18 118/61 96 07/17/21 12:00 36.4 C L 74 18 104/66 100 07/17/21 08:17 36.6 C 60 18 125/71 96 Laboratory Results Short CBC 07/17/21 Range/Units 05:48 WBC 8.18 (4.8-10.8) K/uL Hgb 16.0 (14.0-18.0) g/dL Hct 47.6 (42-52) % Plt Count 359 (130-400) K/uL BMP 07/17/21 05:48 Sodium 135 L Potassium 4.2 Chloride 103 Carbon Dioxide 26 BUN 14 Creatinine 0.91 Glucose 87 Calcium 9.2 Medications Administered Current Inpatient Medications Acetaminophen (Acetaminophen 325 Mg Tab) 650 mg PO Q4H PRN PRN Reason: Pain or Fever Stop: 08/09/21 18:00 Acetaminophen (Acetaminophen 500 Mg Tab) 500 mg PO QID [facility] Stop: 08/09/21 20:59 Last Admin: 07/17/21 12:38 Dose: 500 mg Documented by: Al Hydrox/Mg Hydrox/Simethicone (Aluminum/Magnesium Susp 30 Ml Udc) 15 ml PO Q4H PRN PRN Reason: Dyspepsia Stop: 08/09/21 18:00 Diclofenac Sodium (Diclofenac Sod 1% Gel 100 Gm Tube) 2 gm EXT Q6H [facility] Stop: 08/10/21 09:44 Last Admin: 07/17/21 15:32 Dose: Not Given Documented by: Famotidine (Famotidine 10 Mg Tablet) 10 mg PO HS [facility] Stop: 08/09/21 20:59 Last Admin: 07/16/21 20:08 Dose: 10 mg Documented by: Guaifenesin/Dextromethorphan (Guaifenesin/Dextrom Syrup 200mg/20mg 10ml Udc) 10 ml PO Q6H PRN PRN Reason: Cough Stop: 08/13/21 11:10 Last Admin: 07/14/21 11:30 Dose: 10 ml Documented by: Heparin Sodium/Dextrose (Heparin Sodium/Dextrose) 25,000 units in 500 mls @ 44 mls/hr IV .[id number] [facility]; Protocol Stop: 08/09/21 17:14 Last Admin: 07/17/21 15:22 Dose: 2,200 units/hr, 44 mls/hr Documented by: Ketorolac Tromethamine (Ketorolac 30 Mg/Ml Vial) 30 mg IV Q6 [facility] Stop: 07/19/21 00:01 Last Admin: 07/17/21 12:39 Dose: 30 mg Documented by: Lidocaine (Lidocaine 5% 1 Patch) 1 patch TD QAM [facility] Stop: 08/10/21 15:14 Last Admin: 07/17/21 08:39 Dose: 1 patch Documented by: Magnesium Hydroxide (Magnesium Hydroxide Susp 30 Ml Udc) 30 ml PO Q12H PRN PRN Reason: Constipation Stop: 08/09/21 18:00 Miscellaneous (Remove Lidoderm Patch) 1 ea N/A DAILY@2100 [facility] Stop: 08/10/21 22:59 Last Admin: 07/16/21 20:08 Dose: 1 ea Documented by: Morphine Sulfate (Morphine Sulfate 4 Mg/Ml 1 Ml Carp\Vial) 4 mg IV Q6H PRN PRN Reason: severe pain Stop: 07/24/21 18:00 Last Admin: 07/16/21 12:58 Dose: 4 mg Documented by: Ondansetron HCl (Ondansetron Inj 2 Mg/Ml 2 Ml Vial) 4 mg IV Q6H PRN PRN Reason: Nausea Stop: 08/09/21 18:00 Oxycodone HCl (Oxycodone Hcl Ir 5 Mg Tab (Immediate Release)) 10 mg PO Q6H PRN PRN Reason: Pain Stop: 07/29/21 11:04 Last Admin: 07/16/21 22:22 Dose: 10 mg Documented by: Pantoprazole Sodium (Pantoprazole 40 Mg Tab) 40 mg PO DAILY [facility] Stop: 08/10/21 08:59 Last Admin: 07/17/21 08:41 Dose: 40 mg Documented by: Polyethylene Glycol (Polyethylene (Miralax) 17 Gm Pack) 17 gm PO DAILY PRN PRN Reason: Constipation Stop: 08/09/21 18:00 Prednisone (Prednisone 20 Mg Tab) 20 mg PO DAILY [facility] Stop: 07/21/21 08:59 Last Admin: 07/17/21 09:30 Dose: 20 mg Documented by: Topiramate (Topiramate 25 Mg Tab) 25 mg PO DAILY [facility] Stop: 08/10/21 08:59 Last Admin: 07/17/21 08:40 Dose: 25 mg Documented by:
[2021-07-17] MEDS: FAMOTIDINE 10 MG TABLET PO SCH (19:59)
[2021-07-18] MEDS: HEPARIN SODIUM/DEXTROSE 25,000 UNITS/500 ML BAG IV SCH (02:59)
[2021-07-18] MEDS: oxyCODONE HCL IR 5 MG TAB (IMMEDIATE RELEASE) PO PRN (03:04)
[2021-07-18] MEDS: DICLOFENAC SOD 1% GEL 100 GM TUBE EXT SCH ×3 (03:35→14:44)
[2021-07-18 06:00] LABS: Partial Thromboplastin Ratio 2.5
[2021-07-18 06:14] LABS: Partial Thromboplastin Time 66.8 Seconds (21.0-31.0)
[2021-07-18] MEDS: KETOROLAC 30 MG/ML VIAL IV SCH ×2 (06:31→14:43)
--- NOTE | 2021-07-18 08:45 | Pulmonology Progress Note ---
Date of Service July 18, 2021 Assessment & Plan (1) Bilateral pulmonary embolism: (2) Pulmonary infarct: (3) Cough with hemoptysis: (4) Pleurisy: (5) Pleural effusion, left: Plan: Impression: 35-year-old -[place] Citizen male currently incarcerated at the [facility] skilled nursing. Patient presented to the emergency department 07/10/2021 for left-sided chest pain, shortness of breath, hemoptysis x3 days. CTA of the chest was performed and patient found to have bilateral pulmonary emboli with left-sided infarct. Underwent diagnostic therapeutic thoracentesis 07/16/2021. Continues to have chest pain Recommendations: 1. Left pleural effusion: Status post thoracentesis on the left. Fluid characteristics appear consistent with an exudate likely secondary to pulmonary infarct/PE. Follow-up CT scan demonstrated no residual fluid but pulmonary infarcts which will likely resolve/evolve over time. 2. Bilateral pulmonary emboli: Continue anticoagulation. Defer to outpatient hematology evaluation for thrombophilia work-up and determination of duration of anticoagulation. Okay to discontinue heparin and transition to oral anticoagulation. Duration of anticoagulation to be determined by hematology in the outpatient setting. 3. Hemoptysis: Resolved 4. Pulmonary infarct: Continue supportive care 5. Pleurisy: Unclear if he is better with prednisone and Toradol. Can discontinue Toradol and replace with ibuprofen 600 to 800 mg p.o. every 8 hours. Okay to pursue a trial of prednisone at current doses for 3 to 4 days but if the patient's not significantly better would discontinue the medication without taper. At this point time the patient appears clinically stable for discharge. We will sign off at this point time. Feel free to contact us if we can be of additional assistance. Admission and Anticipated Discharge Date Admission Date: July 10, 2021 Subjective Patient seen and examined. EMR reviewed. Briefly discussed with hospitalist attending. The patient is unsure if the pain is much better with the Toradol and prednisone. He feels that it is now radiating down to his back and abdomen. He is not having any shortness of breath. He is not had any hemoptysis. Review of Systems Review of Systems: All systems reviewed & are unremarkable except as noted in Subjective Physical Exam Constitutional: WD/WN, vitals as above Neck: trachea midline, no thyromegaly Respiratory: normal respiratory effort, lungs clear to auscultation Cardiovascular: RRR, no murmur, no edema Gastrointestinal (Abdomen): normal bowel sounds, soft, nontender, no hepatosplenomegaly Musculoskeletal: Extremities: extremities normal to inspection Skin: no rashes, warm and dry Neurologic: Nonfocal exam Lymphatic: no cervical lymphadenopathy Results & Data Results & Data ([facility]) Vital Signs (Past 12 Hours) Vital Signs Temp Pulse Pulse Resp BP Pulse Ox 07/18/21 07:40 50 L 07/18/21 03:00 36.5 C 57 L 18 123/74 98 07/17/21 23:19 63 07/17/21 23:00 36.9 C 60 60 H 145/62 H 97 Critical Care Results & Data Vital Signs (Past 12 Hours) Vital Signs Temp Pulse Pulse Resp BP Pulse Ox 07/18/21 07:40 50 L 07/18/21 03:00 36.5 C 57 L 18 123/74 98 07/17/21 23:19 63 07/17/21 23:00 36.9 C 60 60 H 145/62 H 97 Lab & Micro Results (Past 24 Hours) No Data to Display No Data to Display No Data to Display Microbiology 07/16/21 11:17 Gram Stain - Final Pleural Fluid Aerobic and Anaerobic Culture - Preliminary No growth to date. Diagnostic Findings (Past 24 Hours) Chest CT 07/17/21 08:43 CT SCAN OF THE CHEST WITHOUT IV CONTRAST CLINICAL HISTORY: Pleural effusion status post thoracentesis. COMPARISON STUDY: Chest CT dated 07/10/2021. Chest x-ray dated 07/16/2021. TECHNIQUE: CT scan of the thorax was performed from the thoracic inlet to the upper abdomen. Images are reviewed in the axial, sagittal, and coronal planes. IV contrast was not administered for this examination as per the referring clinician. A dose lowering technique was utilized adhering to the principles of ALARA. CT DOSE: 913.08 mGy.cm FINDINGS: Thyroid: Imaged portions of the thyroid gland are normal in size and attenuation. Thoracic aorta: The thoracic aorta is normal in caliber and demonstrates standard 3-vessel arch anatomy. Heart: The heart is normal in size and without pericardial effusion. Lungs and pleural spaces: Evaluation of the lung parenchyma is degraded by motion artifact. Mild emphysematous change is noted at the apices. The trachea and central airways are clear. There is trace right pleural effusion with right basilar atelectasis. There is trace residual left pleural effusion, with foci of wedge-shaped subpleural consolidation in the left lower lobe and lingula. No pneumothorax is seen. Mediastinum: A mildly enlarged prevascular node measures 11 mm in short axis. Leyda: Not well assessed without IV contrast. Axillae: There is no axillary lymphadenopathy. Upper abdomen: Partially visualized upper abdominal viscera is within normal limits. Skeletal structures: No lytic or blastic bony lesions are seen. IMPRESSION: 1. Mild emphysema. 2. There is trace residual left pleural effusion status post thoracentesis. No pneumothorax is identified. 3. There are foci of wedge-shaped subpleural consolidation in the left lower lobe and lingula. This has increased from 07/10/2021. Given the findings of recent pulmonary emboli, these likely represent evolving pulmonary infarcts. Correlate clinically for evidence of a superimposed infectious/inflammatory pneumonitis. 4. There is trace pleural fluid at the right lung base. 5. A mildly enlarged prevascular node may be reactive. ACT 112: Negative or not required by law. Electronically signed by: Michi Coates M.D. 07/17/2021 9:48 AM I & O Totals 24 Hours 07/17/21 07/18/21 07/19/21 06:59 06:59 06:59 Intake Total 1954.733 / 6923.961 5933.600 / 2715.600 Output Total 3800 / 3800 4250 / 4250 Balance -1845.267 / -1845.267 -1534.400 / -1534.400 Cumulative 07/10/21 15:20 thru 07/18/21 06:24 Intake Total 89608.899 Output Total 12299 Balance -15212.101 RT Ventilator Mngmt (Last Documented) Ventilator Ordered Settings Respiratory Rate 18 07/18/21 03:00 Ventilator - PT Measurements Respiratory Rate 18 PG Care Time/CCT Total # of Minutes Spent Total Time Spent with Patient: Total time spent is greater than 50% in coordination of care (as documented) at patient's floor/unit and/or counseling patient: Coding Level of Care Code 91202 Subseq Hosp Care Lvl 2 Diagnoses Bilateral pulmonary embolism I26.99 Pulmonary infarct I26.99 Cough with hemoptysis R04.2 Pleurisy R09.1 Pleural effusion, left J90
[2021-07-18] MEDS: TOPIRAMATE 25 MG TAB PO SCH (08:51)
[2021-07-18] MEDS: PANTOprazole 40 MG TAB PO SCH (08:51)
[2021-07-18] MEDS: LIDOCAINE 5% 1 PATCH TD SCH (08:52)
[2021-07-18] MEDS: predniSONE 20 MG TAB PO SCH (08:52)
[2021-07-18] MEDS: ACETAMINOPHEN 500 MG TAB PO SCH ×2 (08:55→14:43)
[2021-07-18] MEDS ORDERED: APIXABAN 5 MG TABLET PO SCH ×2 (09:00→09:35)
--- NOTE | 2021-07-18 11:21 | Hospitalist Progress Note ---
Date of Service July 18, 2021 Assessment & Plan (1) Bilateral pulmonary embolism: Plan: Bilateral pulmonary embolism Admitting CTA chest positive for extensive bilateral segmental/subsegmental pulmonary emboli, no evidence of right-sided heart strain. Trace pleural effusion. Admitting CTAP: No acute finding except the findings described in CTA chest. Admitting troponin negative. 07/11 echo: Ejection fraction 55 to 60%, grossly normal right ventricular chamber size and systolic function on technically limited visualization. Pulmonary artery systolic pressure around 35 to 40 mmHg. Continue IV Heparin bolus/gtt Pulmonology evaluated the patient. Recommends outpatient hematology follow-up. hypercoagulable w/u pending Saturating normally on room air and has been on intravenous heparin Status post left thoracentesis and heparin infusion has been restarted at 3 PM today Remains stable with minimal pain at the left lateral chest wall Will start Eliquis and will be discharged this afternoon Eliquis 10 mg twice daily for 7 days and then 5 mg twice daily to continue for at least 6 months Left pleural effusion Status post thoracentesis of 400 mL rachelle-colored fluid No signs of infection in the pleural fluid and it seems to be exudative likely secondary to inflammatory exudate from pulmonary infarct No bleeding Appreciate pulmonary input and recommended (2) Pulmonary infarct: Plan: Left Sided chest pain Hemoptysis Patient Reports coughing up blood-tinged sputum. Consider rediscussion with pulm if ongoing/worsening. Hemoptysis has been improving Will likely discharge tomorrow on further improvement on hemoptysis Hemoptysis has improved a lot but the pain has been worsening Chest x-ray did show left-sided pleural effusion We will ask pulmonary to reevaluate No more hemoptysis Has been getting steroid for pleuritic pain He will be given short course of oral steroid and smaller dose of narcotic pain medications to control pain Ibuprofen must be avoided due to being on Eliquis (3) Left-sided chest pain: Plan: Has significant left-sided chest pain due to pulmonary infarct Will start Percocet Pain medication doses have been increased Pain has been much improved Plan: Hypomagnesemia Monitor and replete as appropriate. DVT prophylaxis: IV heparin Dispo: PCU Full code PCP: Erica Nicolas Likely discharge tomorrow Admission and Anticipated Discharge Date Admission Date: July 10, 2021 Subjective 07/14/2021 The patient was seen and examined in telemetry unit He has been complaining of left-sided chest pain with movement, cough and deep breathing His hemoptysis seems to be improving Denies any other significant symptoms 07/15/2021 The patient was seen and examined in telemetry unit He complains to have more pain in the left sided chest wall specially with breathing and movement Denies any fever and/or chills Saturating normally on room air 07/16/2021 The patient was seen and examined in telemetry unit Still has some pain in the left sided chest wall but has been better Status post left thoracentesis of 400 mm rachelle-colored fluid seems to be exudative likely secondary to inflammatory response to pulmonary infarct Otherwise better 07/17/2021 The patient was seen and examined in telemetry unit He still complains of pain in the left lower chest wall without any shortness of breath His hemoptysis seems to be controlled 07/18/2021 The patient was seen and examined in telemetry unit He still complains of pleuritic chest pain but denies any shortness of breath and/or palpitation He has been saturating normally on room air and remains hemodynamically stable He will be transferred to [facility] this afternoon Review of Systems Review of Systems: All systems reviewed and are unremarkable except as noted below Respiratory: Pleuritic chest pain on the left side Physical Exam Physical Exam: Lying in bed with some discomfort due to left-sided chest pain Constitutional: well developed and well nourished; not ill appearing Eyes: PERRL, conjunctivae normal, anicteric sclerae ENMT: external ear and nose normal, oropharynx normal Neck: trachea midline, no thyromegaly Respiratory: no respiratory distress (Due to chest pain with deep breathing) Auscultation: + diminished lung sounds and + crackles (Minimal crackles at the left base) Cardiovascular: Rate/Rhythm: regular rate and regular rhythm; not tachycardic Heart Sounds: normal S1 and normal S2; no murmur Gastrointestinal (Abdomen): Inspection/Auscultation: normal bowel sounds; abdomen not distended Percussion/Palpation: abdomen soft; abdomen nontender Musculoskeletal: No acute arthritis in any joint Neurologic: normal touch/pain/proprioception; no focal motor deficits Results & Data Results & Data ([facility]) Vital Signs (Past 12 Hours) Vital Signs Temp Pulse Pulse Resp BP Pulse Ox 07/18/21 08:00 36.7 C 70 16 136/66 98 07/18/21 07:40 50 L 07/18/21 03:00 36.5 C 57 L 18 123/74 98 07/17/21 23:19 63 Medications Administered Current Inpatient Medications Acetaminophen (Acetaminophen 325 Mg Tab) 650 mg PO Q4H PRN PRN Reason: Pain or Fever Stop: 08/09/21 18:00 Acetaminophen (Acetaminophen 500 Mg Tab) 500 mg PO QID [facility] Stop: 08/09/21 20:59 Last Admin: 07/18/21 08:55 Dose: 500 mg Documented by: Al Hydrox/Mg Hydrox/Simethicone (Aluminum/Magnesium Susp 30 Ml Udc) 15 ml PO Q4H PRN PRN Reason: Dyspepsia Stop: 08/09/21 18:00 Apixaban (Apixaban 5 Mg Tablet) 10 mg PO BID [facility] Stop: 07/25/21 08:59 Last Admin: 07/18/21 10:20 Dose: 10 mg Documented by: Diclofenac Sodium (Diclofenac Sod 1% Gel 100 Gm Tube) 2 gm EXT Q6H [facility] Stop: 08/10/21 09:44 Last Admin: 07/18/21 08:52 Dose: Not Given Documented by: Famotidine (Famotidine 10 Mg Tablet) 10 mg PO HS [facility] Stop: 08/09/21 20:59 Last Admin: 07/17/21 19:59 Dose: 10 mg Documented by: Guaifenesin/Dextromethorphan (Guaifenesin/Dextrom Syrup 200mg/20mg 10ml Udc) 10 ml PO Q6H PRN PRN Reason: Cough Stop: 08/13/21 11:10 Last Admin: 07/14/21 11:30 Dose: 10 ml Documented by: Ketorolac Tromethamine (Ketorolac 30 Mg/Ml Vial) 30 mg IV Q6 [facility] Stop: 07/19/21 00:01 Last Admin: 07/18/21 06:31 Dose: 30 mg Documented by: Lidocaine (Lidocaine 5% 1 Patch) 1 patch TD QAM [facility] Stop: 08/10/21 15:14 Last Admin: 07/18/21 08:52 Dose: 1 patch Documented by: Magnesium Hydroxide (Magnesium Hydroxide Susp 30 Ml Udc) 30 ml PO Q12H PRN PRN Reason: Constipation Stop: 08/09/21 18:00 Miscellaneous (Remove Lidoderm Patch) 1 ea N/A DAILY@2100 [facility] Stop: 08/10/21 22:59 Last Admin: 07/17/21 22:18 Dose: 1 ea Documented by: Morphine Sulfate (Morphine Sulfate 4 Mg/Ml 1 Ml Carp\Vial) 4 mg IV Q6H PRN PRN Reason: severe pain Stop: 07/24/21 18:00 Last Admin: 07/16/21 12:58 Dose: 4 mg Documented by: Ondansetron HCl (Ondansetron Inj 2 Mg/Ml 2 Ml Vial) 4 mg IV Q6H PRN PRN Reason: Nausea Stop: 08/09/21 18:00 Oxycodone HCl (Oxycodone Hcl Ir 5 Mg Tab (Immediate Release)) 10 mg PO Q6H PRN PRN Reason: Pain Stop: 07/29/21 11:04 Last Admin: 07/18/21 03:04 Dose: 10 mg Documented by: Pantoprazole Sodium (Pantoprazole 40 Mg Tab) 40 mg PO DAILY [facility] Stop: 08/10/21 08:59 Last Admin: 07/18/21 08:51 Dose: 40 mg Documented by: Polyethylene Glycol (Polyethylene (Miralax) 17 Gm Pack) 17 gm PO DAILY PRN PRN Reason: Constipation Stop: 08/09/21 18:00 Prednisone (Prednisone 20 Mg Tab) 20 mg PO DAILY [facility] Stop: 07/21/21 08:59 Last Admin: 07/18/21 08:52 Dose: 20 mg Documented by: Topiramate (Topiramate 25 Mg Tab) 25 mg PO DAILY [facility] Stop: 08/10/21 08:59 Last Admin: 07/18/21 08:51 Dose: 25 mg Documented by:
[2021-07-18] MEDS ORDERED: oxyCODONE HCL IR 5 MG TAB (IMMEDIATE RELEASE) PO PRN (11:42)
[2021-07-18 13:05] LABS: Partial Thromboplastin Ratio 1.3; Partial Thromboplastin Time 34.3 Seconds (21.0-31.0)
[2021-07-18 21:31] LABS: Factor 5 Mutation NEGATIVE
== END 2021-07-18 16:20 | DRG 176 ==
LOC: ED 15:20 → EDINP 17:13 → SUATTDRO 17:13 → 2S 17:43